=== PATIENT | female | born 1955 | race Caucasian/White ===

== ENCOUNTER 2018-02-28 19:31 | Inpatient (IN) | payer MEDICARE ==
[2018-02-28 20:06] LABS: Hematocrit 38 % (35-47); Hemoglobin 12.4 g/dl (12.0-16.0); Mean Corpuscular HGB Conc 32 g/dl (31-36); Mean Corpuscular Hemoglobin 28 pg (27-31); Mean Corpuscular Volume 88 fL (80-97); Mean Platelet Volume 7.7 fL (7.4-10.4); Platelet Count 387 10^3/ul (150-450); Red Blood Count 4.39 10^6/ul (4.00-5.40); Red Cell Distribution Width 17 % (10.5-15); White Blood Count 11.7 10^3/ul (3.5-10.8)
--- NOTE | 2018-02-28 20:20 | ED ---
Lower Extremity - HPI Summary HPI Summary: The pt is a 62 y/o female presenting to [facility] c/o [id number] bilateral lower extremity swelling worse on the RLE worsened 1 week ago. She notes leaky sores for the last 2 months but denies fever or SOB. She reports throbbing pain rated 2/10. Home Medications Medication Instructions Recorded Confirmed Type Albuterol 2.5MG/3ML (0.083%)* 1 inh PO QID PRN 06/08/15 06/09/15 History [Ventolin 2.5 MG/3 ML NEB.JOYCELYN*] Albuterol inh POWDER (NF) [Proair 2 puff PO Q4HR PRN 06/08/15 06/09/15 History Respiclick] Bupropion HCl [Bupropion HCl ER] 150 mg PO BID 06/08/15 06/09/15 History Citalopram TAB* [Celexa TAB*] 20 mg PO DAILY 06/08/15 06/09/15 History Diclofenac Sodium [Diclofenac 50 mg PO BID PRN 06/08/15 06/09/[address]] Fluticasone-Salmeterol 500-50* 1 dose PO BID 06/08/15 06/09/15 History [Advair Diskus 500-50*] Furosemide TAB* [Lasix TAB*] 40 mg PO DAILY 06/08/15 06/09/15 History Levothyroxine TAB* [Synthroid 137 137 mcg PO DAILY 06/08/15 06/09/15 History MCG TAB*] Metoprolol Succinate [Metoprolol 25 mg PO BID 06/08/15 06/09/15 History Succinate ER] Omeprazole CAP* [Prilosec CAP* 20 20 mg PO DAILY 06/08/15 06/09/15 History MG] Potassium Chloride Microencaps 10 meq PO DAILY 06/08/15 06/09/15 History [Klor-Con M10] Amlodipine Besylate [Norvasc] 2.5 mg PO DAILY 06/09/15 06/09/15 History Ibuprofen [Ibuprofen 200 MG] 2 tab PO Q6HR PRN 06/09/15 06/09/15 History - History of Current Complaint Chief Complaint: EDExtremityLower Stated Complaint: POSS INFECTION Time Seen by Provider: 02/28/18 19:44 Hx Obtained From: Patient Mechanism Of Injury: Unknown Onset of Pain: Days Onset/Duration: Worse Since - 1 week ago Severity Initially: Mild Severity Currently: Mild Pain Intensity: 2 Pain Scale Used: 0-10 Numeric Timing: Constant Location: Is Discrete @ - Bilateral LEs worse in the R Character Of Pain: Throbbing Associated Signs And Symptoms: Positive: Swelling, Other - Weeping sores Aggravating Factor(s): Nothing Alleviating Factor(s): Nothing - Allergies/Home Medications Allergies/Adverse Reactions: Allergies Allergy/AdvReac Type Severity Reaction Status Date / Time No Known Allergies Allergy Verified 06/08/15 16:32 PMH/Surg Hx/FS Hx/Imm Hx Previously Healthy: No Endocrine/Hematology History: Reports: Hx Thyroid Disease - Hypothyroidism Denies: Hx Diabetes Cardiovascular History: Reports: Hx Hypertension Denies: Hx Angina, Hx Coronary Artery Disease, Hx Hypercholesterolemia, Hx Myocardial Infarction, Hx Valvular Heart Disease Respiratory History: Reports: Hx Asthma Denies: Hx Chronic Obstructive Pulmonary Disease (COPD) History: Reports: Other Problems/Disorders - URIs Musculoskeletal History: Reports: Other Musculoskeletal History - Chronic L hip and L knee pain Sensory History: Denies: Hx Deafness Psychiatric History: Reports: Hx Anxiety, Hx Depression - Cancer History Cancer Type, Location and Year: None reported - Surgical History Surgery Procedure, Year, and Place: R shoulder decompression and [id number] rotator cuff repair- 2008. Cholecystectomy Infectious Disease History: No Infectious Disease History: Denies: Traveled Outside the [place] in Last 30 Days - Family History Known Family History: Positive: Cardiac Disease - Aneurysm- father , Diabetes - Sister , Respiratory Disease - COPD- mother , Other - CA-sister - Social History Occupation: Retired Lives: With Family Alcohol Use: None Substance Use Type: Reports: None Smoking Status (MU): Never Smoked Tobacco Review of Systems Negative: Fever Musculoskeletal: Other - Positive: Bilateral LE pain Positive: Edema - Bilateral LEs worse on the R Positive: Other - Positive: Weeping sores on LEs All Other Systems Reviewed And Are Negative: Yes Physical Exam - Summary Physical Exam Summary: Appearance: The patient is well-nourished in no acute distress and in no acute pain. Skin: Chronic venous stasis on the bilateral LEs. Open sores weeping serous fluid bilaterally worse on the RLE HEENT: The head is normocephalic and atraumatic. The pupils are equal and reactive. The conjunctivae are clear and without drainage. Nares are patent and without drainage. Mouth reveals moist mucous membranes and the throat is without erythema and exudate. The external ears are intact. The ear canals are patent and without drainage. The tympanic membranes are intact. Neck: The neck is supple with full range of motion and non-tender. There are no carotid bruits. There is no neck vein distension. Respiratory: Chest is non-tender. Lungs are clear to auscultation and breath sounds are symmetrical and equal. Cardiovascular: Heart is regular rate and rhythm. There is no murmur or rub auscultated. There is bilateral pitting edema of the LEs. Pulses are symmetrical and equal. Abdomen: The abdomen is soft and non-tender. There are normal bowel sounds heard in all four quadrants and there is no organomegaly palpated. Musculoskeletal:There is no back tenderness noted. Extremities are non-tender with full range of motion. There is good capillary refill. There is bilateral pitting edema of the LEs . No calf tenderness elicited. Neurological: Patient is alert and oriented to person, place and time. The patient has symmetrical motor strength in all four extremities. Cranial nerves are grossly intact. Deep tendon reflexes are symmetrical and equal in all four extremities. Psychiatric: The patient has an appropriate affect and does not exhibit any anxiety or depression. Triage Information Reviewed: Yes Vital Signs On Initial Exam: Initial Vitals Temp Pulse Resp BP Pulse Ox 97.0 F 82 16 120/86 97 02/28/18 19:48 02/28/18 19:48 02/28/18 19:48 02/28/18 19:48 02/28/18 19:48 Vital Signs Reviewed: Yes Diagnostics - Vital Signs Vital Signs Temp Pulse Resp BP Pulse Ox 02/28/18 19:48 97.0 F 82 16 120/86 97 - Laboratory Lab Results: Lab Results 02/28/18 Range/Units 19:59 WBC 11.7 H (3.5-10.8) 10^3/ul RBC 4.39 (4.00-5.40) 10^6/ul Hgb 12.4 (12.0-16.0) g/dl Hct 38 (35-47) % MCV 88 (80-97) fL MCH 28 (27-31) pg MCHC 32 (31-36) g/dl RDW 17 H (10.5-15) % Plt Count 387 (150-450) 10^3/ul MPV 7.7 (7.4-10.4) fL Neut % (Auto) Pending Lymph % (Auto) Pending [place] % (Auto) Pending Eos % (Auto) Pending Baso % (Auto) Pending Absolute Neuts (auto) Pending Absolute Lymphs (auto) Pending Absolute Monos (auto) Pending Absolute Eos (auto) Pending Absolute Basos (auto) Pending Absolute Nucleated RBC Pending Nucleated RBC % Pending Result Diagrams: 02/28/18 19:59 02/28/18 19:59 Lab Statement: Any lab studies that have been ordered have been reviewed, and results considered in the medical decision making process. Lower Extremity Course/Dx - Course Course Of Treatment: Ostensibly Ms. Ridley presented because of swelling to her bilateral lower extremities with redness and weeping. Her family is concerned that she is gotten weaker and is unable to take care of herself. She reportedly has been sliding out of her chair and onto the floor. She is a difficult historian. She is morbidly obese and has peripheral edema with chronic venous stasis changes and open weeping areas. It's unclear whether she has an acute cellulitis however she is given vancomycin here in the emergency department while her workup was in progress. She was noted to have a mild leukocytosis as well as a new renal insufficiency. The hospitals were contacted our admitting her. - Diagnoses Provider Diagnoses: Weakness, Falling, Acute renal failure - Physician Notifications Discussed Care Of Patient With: Liudmila Carolina - Hospitalist Instructed by Provider To: Admit As Inpatient - Critical Care Time Critical Care Time: 30-74 min Discharge - Sign-Out/Discharge Documenting (check all that apply): Patient Departure - Discharge Plan Condition: Stable Disposition: ADMITTED TO [facility] Referrals: Silva Bellamy DO [Primary Care Provider] - - Billing Disposition and Condition Condition: STABLE Disposition: Admitted to [facility] - Attestation Statements Document Initiated by Scribe: Yes Documenting Scribe: Leila Salazar Provider For Whom Scribe is Documenting (Include Credential): Dr. Vinod Jacob MD Scribe Attestation: Leila Moura , scribed for Dr. Vinod Jacob MD on 02/28/18 at 2120. Scribe Documentation Reviewed: Yes Provider Attestation: The documentation as recorded by the scribe, Leila Salazar accurately reflects the service I personally performed and the decisions made by me, Dr. Vinod Jacob MD Status of Scribe Document: Viewed
[2018-02-28 20:23] LABS: EGFR Non-African American 22.7 (>60)
[2018-02-28 20:42] LABS: ABS Basophils 0.1 10^3/ul (0-0.2); ABS Eosinophils 0.2 10^3/ul (0-0.6); ABS Lymphocytes 1.4 10^3/ul (1.0-4.8); ABS Monocytes 1.1 10^3/ul (0-0.8); ABS Neutrophils 8.9 10^3/ul (1.5-7.7); ABS Nucleated RBC 0 10^3/ul; Eosinophil % 1.6 %; Lymphocyte % 11.9 %; Nucleated Red Blood Cells % 0.1
[2018-02-28] MEDS ORDERED: Vancomycin(*) 1,000 MG in NS 0.9% 250 ML* 250 ML IVPB ONE (20:49)
[2018-02-28] MEDS ORDERED: NS 0.9% 1000 ML* 1,000 ML IV SCH (21:30)
[2018-02-28] MEDS ORDERED: ceFAZolin 1 GM ADVAN(*) 1 GM in NS 0.9% 50 ML* 50 ML IVPB SCH (22:00)
--- NOTE | 2018-03-01 01:02 | HP ---
CC: Dr. Bellamy * HISTORY AND PHYSICAL: DATE OF ADMISSION: 02/28/18 PRIMARY CARE PROVIDER: Dr. Bellamy. CHIEF COMPLAINT: Falls, swollen legs, and inability to care for self. HISTORY OF PRESENT ILLNESS: Ms. Ridley is a 62-year-old female who has a history of hypertension, depression/anxiety, morbid obesity, asthma, hypothyroidism, and questionable endometrial hyperplasia with atypia on biopsy in 2017, who presents to the emergency room with complaints of recurrent falls, swollen legs that have opened and are now weeping and an inability to care for herself. The patient has come to the emergency room. Her sister who is an RN finally was able to convince her to present to the emergency room to be evaluated. The patient really is not able to provide very much history. She is somewhat dysarthric and has slight word- finding difficulties but generally is just a poor historian. The patient's sister and [id number] provide the bulk of the history. The patient has been falling over the last several weeks. She tells me that she is just sliding when she is trying to stand up. Her sister has had to get her up several times. She does have a bruise on her bottom from recent fall. Additionally, she has had marked increase in lower extremity swelling over the last few months. Her legs have gotten to the point where they are now red and raw in the posterior aspects of the legs. They are quite sore to touch. The legs have been oozing. The patient denies any fevers or chills. She does admit to feeling pins and needles in her legs. Her sister has been trying to provide wraps on her legs; however, the patient dislikes the feeling of those and therefore has been taking them off. In addition to these complaints, the patient's sister states that she has been more confused recently. The patient also reportedly has not been taking her medications except when she feels like it. She spends most of her day sitting up in a recliner chair with her legs down. She ambulates very little. She does continue to get dyspneic with minimal exertion. PAST MEDICAL HISTORY: 1. Hypertension. 2. Depression/anxiety. 3. Morbid obesity. 4. Asthma. 5. Hypothyroidism. 6. Endometrial hyperplasia with atypia. PAST SURGICAL HISTORY: 1. Cholecystectomy. 2. Rotator cuff repair on the right. MEDICATIONS: 1. Megace 160 mg p.o. b.i.d. 2. Lasix 80 mg p.o. daily. 3. Amlodipine 5 mg p.o. daily. 4. Celexa 20 mg p.o. daily. 5. Omeprazole 20 mg p.o. daily. 6. Potassium chloride 10 mEq p.o. daily. 7. Metoprolol XL 25 mg p.o. b.i.d. 8. Synthroid 150 mcg p.o. daily. 9. Bupropion 150 mg p.o. b.i.d. ALLERGIES: No known drug allergies. FAMILY HISTORY: Mom at the age of 74 of COPD. Dad of a brain aneurysm rupture. He also had leukemia and diabetes. SOCIAL HISTORY: The patient is a nonsmoker. She does not drink alcohol. She worked as a hr receptionist. She is . She has 2 children. She indicates that her daughter, Ave, and her sister, Vidhi, would be her healthcare proxies. REVIEW OF SYSTEMS: The patient denies any fevers or chills. She states that her appetite at times has been quite poor and at other times is sufficient. She does not know if she has lost any weight. She is unable to get weighed at home. She states that her clothes are still fitting about the same. She denies any chest pain. She has a lower extremity edema as noted above. She denies any cough or sputum production. She admits to shortness of breath with exertion. No nausea, vomiting, abdominal pain, constipation, diarrhea or hematochezia. No hematuria, no dysuria. She has had dysarthria and mild word- finding difficulties as noted above over the last couple of days. The patient' s sister states that today is the worst. She denies any sudden vision loss. No dysphagia. No joint pains or muscle pains out of the ordinary, no rashes, no incapacitating anxiety or depression. PHYSICAL EXAMINATION GENERAL: The patient is a well-developed, morbidly obese, middle-aged female, lying in the stretcher, in no acute distress. VITAL SIGNS: Blood pressure 139/66, pulse 80, respirations 22, temp 97.0, O2 sat 99% on 3 L. HEENT: Pupils are equal and round. Extraocular muscles are intact. Oropharynx is clear. Oral mucosa is very dry. The patient's lips are very dry. There is no submandibular, cervical, or supraclavicular adenopathy. Thyroid is not enlarged. No thyroid nodules noted. PULMONARY: Lungs are clear in the upper lobe, but there are few crackles at the bases. CARDIAC: Normal S1, S2. Regular rate and rhythm. I do not appreciate any murmurs. There is marked anasarca and lymphedema-type changes to the bilateral lower extremities. ABDOMEN: Bowel sounds are present. Abdomen is soft, nontender, nondistended. MUSCULOSKELETAL: There is no cyanosis or clubbing of the digits. There is full range of motion of the upper extremities. The patient is not able to easily move her lower extremities due to pain and the fact that they are so heavy. NEURO: The patient is mildly dysarthric. A question of very minimal droop at the left corner of the mouth. STRENGTH: Strength in the upper extremities and lower extremities are symmetric bilaterally. PSYCH: The patient is alert. She is somewhat confused. Again, she is a very poor historian. She is alert to being in the hospital in her current situation however. SKIN: Warm and dry. The patient has a bruise on the right lateral chest wall and left lateral flank. I am unable to evaluate the bruise that the patient's sister states that it is on the patient's bottom. Her legs are erythematous. They are slightly warm. There are multiple areas of what appears to be raw skin with serous drainage. There is some yellow crusting and these areas are tender to touch. LABORATORY DATA: WBC 11.7, hemoglobin 12.4, hematocrit 38, platelets 387. Sodium 131, potassium 5.2, chloride 95, CO2 26, BUN 34, creatinine 2.19, glucose 104, calcium 9.4. Bilirubin 1.0, AST 42, ALT 21, alk phos 64. CRP is 68.18. Albumin 3.2. TSH pending. ASSESSMENT AND PLAN: Ms. Ridley is a 62-year-old female, who has brought to the emergency room at the advice of her sister for evaluation of recurrent falls and lower extremity swelling and weeping. 1. Bilateral lower extremity cellulitis. At this point, I do believe the patient likely has a very mild cellulitis of the bilateral lower extremities. She will be admitted and started on cefazolin 1 g IV q.12 hours. This is based on her renal function. Wound Care consult will be requested. For now, we will have nursing cover the areas of open skin with Xeroform and wrap with Kerlix. 2. Recurrent falls. It is unclear why the patient is so weak other than I suspect she has become markedly deconditioned by lack of activity. PT evaluation will need to be requested though I am going to hold off at this point while they are other acute medical issues to address. I do suspect the patient will need subacute rehab on discharge as at this point she is unable to independently take care of herself. 3. Lower extremity swelling. The patient has lymphedema-type changes to bilateral lower extremities. Her sister who is a reliable historian states that the swelling in the legs, however, developed most markedly over the last few months. It is unclear why this is. She has not been taking her Lasix, which is likely contributing. Additionally, she has not been taking her Synthroid routinely, which makes me question whether or not she is markedly hypothyroid at this time. TSH is pending. I am not going to provide any compression wraps at this time. We will wait for recommendations from the wound nurse due to the wounds on her legs. Transthoracic echocardiogram will be ordered. I am going to hold off on giving diuretics at this point as the patient has very dry oral mucosa and markedly elevated creatinine compared to her baseline, which makes me believe that she is likely intravascularly dry, but total body fluid overloaded. 4. Acute renal failure. The patient's baseline creatinine in 2017 was around 0.8. Currently, her creatinine is up to 2.19. This is not taking her Lasix 80 mg daily routinely. I will have the patient be started on normal saline at 100 mL per hour for 1 L. We will repeat creatinine tomorrow. If her creatinine fails to improve with IV fluid administration, she will need further investigation with likely FENa or imaging or even Nephrology consultation. 5. Hypertension. The patient's blood pressure is under fair control currently. I am going to continue her metoprolol succinate and amlodipine at her home doses. As she was not taking these routinely, we will need to make sure that her blood pressure does not bottom out on these doses. 6. Depression/anxiety. We will continue Celexa at her home dose. 7. Hypothyroidism. As above, I am concerned that the patient could be markedly hypothyroid at this point. For now, she will continue on her usual dose of 150 mcg of Synthroid daily. 8. Endometrial hyperplasia with atypia. This was diagnosed in 2017 via biopsy. It is unclear if she has followed up with [facility] regarding this. She has been started, however, on Megace. At this point, I am going to hold the Megace and she will need further evaluation for potential endometrial cancer either with transvaginal ultrasound or more likely endometrial biopsy. 9. DVT prophylaxis. According to the Adult Thrombosis Prophylaxis Risk Factor Assessment Guide, the patient has a total risk factor score of 4, making her high risk. She will be placed on heparin 5000 units subcutaneous q.8 hours. 10. Code status. Full. TIME SPENT: Seventy minutes was spent admitting this patient. [id number]/CPS #: [id number] ALLIE
[2018-03-01] MEDS: Heparin VIAL(*) 5000 UNITS/ML VIAL (FIVE THOUSAND) SUBCUT SCH ×3 (05:46→21:11)
[2018-03-01] MEDS: Levothyroxine TAB* 150 MCG TAB PO SCH (05:47)
[2018-03-01] MEDS ORDERED: ceFAZolin 1 GM in Dextrose (*) 1 GM/50 ML BAG IVPB SCH (06:00)
[2018-03-01] MEDS ORDERED: amLODIPine TAB* 5 MG PO SCH (09:00)
[2018-03-01] MEDS: BuPROPion XL* 150 MG TAB.XL PO SCH ×2 (10:22→21:11)
[2018-03-01] MEDS: Citalopram TAB* 20 MG PO SCH (10:22)
[2018-03-01] MEDS: Nystatin TOP POWDER* 15 GM BTL TOPICAL SCH ×3 (10:22→21:31)
[2018-03-01] MEDS: Metoprolol Succinate XL TAB* 25 MG PO SCH ×2 (10:22→21:11)
[2018-03-01] MEDS: Omeprazole CAP* 20 MG PO SCH (10:22)
[2018-03-01] MEDS ORDERED: Vancomycin per Pharmacy* NOTE FOLLOW UP SCH (11:00)
[2018-03-01 12:03] LABS: Hematocrit 34 % (35-47); Hemoglobin 10.9 g/dl (12.0-16.0); Mean Corpuscular HGB Conc 33 g/dl (31-36); Mean Corpuscular Hemoglobin 29 pg (27-31); Mean Corpuscular Volume 88 fL (80-97); Mean Platelet Volume 7.4 fL (7.4-10.4); Platelet Count 324 10^3/ul (150-450); Red Blood Count 3.84 10^6/ul (4.00-5.40); Red Cell Distribution Width 17 % (10.5-15); White Blood Count 9.4 10^3/ul (3.5-10.8)
[2018-03-01 12:25] LABS: EGFR Non-African American 37.2 (>60)
[2018-03-01] MEDS ORDERED: NS 0.9% 1000 ML* 1,000 ML IV SCH (14:30)
[2018-03-01] MEDS ORDERED: Vancomycin 1500 MG IV - x ONCE IVPB ONE ×2 (14:30)
[2018-03-01] MEDS: cefTRIAXone(*) 1 GM in NS 0.9% 50 ML* 50 ML IVPB SCH (15:35)
--- NOTE | 2018-03-01 15:40 | PN ---
Subjective Date of Service: 03/01/18 Interval History: Patient difficult to arouse today. Difficulty forming words but no other aphasia. Very dry mouth. Falls asleep during conversation. Not able to cooperate fully with questioning and exam but denies pain, CP, SOB, Abdominal pain, dysuria. Discussed with patient's family that this is not normal for her and that she has been getting slowly more confused for a period of time. Family History: Unchanged from Admission Social History: Unchanged from Admission Past Medical History: Unchanged from Admission Objective Active Medications: Acetaminophen (Tylenol Tab*) 650 mg PO Q4H PRN PRN Reason: PAIN Amlodipine Besylate (Norvasc Tab*) 5 mg PO DAILY [facility] Last Admin: 03/01/18 10:22 Dose: 5 mg Bupropion HCl (Wellbutrin Xl *) 150 mg PO BID [facility] Last Admin: 03/01/18 10:22 Dose: 150 mg Citalopram Hydrobromide (Celexa Tab*) 20 mg PO DAILY [facility] Last Admin: 03/01/18 10:22 Dose: 20 mg Heparin Sodium (Porcine) (Heparin Vial(*)) 5,000 units SUBCUT Q8HR [facility] Last Admin: 03/01/18 14:22 Dose: 5,000 units Sodium Chloride (Ns 0.9% 1000 Ml*) 1,000 mls @ 100 mls/hr IV PER RATE [facility] Doxycycline Hyclate 100 mg/ (Sodium Chloride) 250 mls @ 250 mls/hr IVPB Q12H [facility] Ceftriaxone Sodium 1 gm/ (Sodium Chloride) 50 mls @ 200 mls/hr IVPB Q24H [facility] Levothyroxine Sodium (Synthroid Tab*) 150 mcg PO 0600 [facility] Last Admin: 03/01/18 05:47 Dose: 150 mcg Metoprolol Succinate (Toprol Xl Tab*) 25 mg PO BID [facility] Last Admin: 03/01/18 10:22 Dose: 25 mg Nystatin (Nystatin Top Powder*) 1 applic TOPICAL TID [facility] Last Admin: 03/01/18 14:22 Dose: 1 applic Omeprazole (Prilosec Cap*) 20 mg PO DAILY [facility] Last Admin: 03/01/18 10:22 Dose: 20 mg Pharmacy Consult (Vancomycin Random Level*) 1 note FOLLOW UP 0600 PRN PRN Reason: PER PROTOCOL Stop: 03/02/18 12:00 Vital Signs - 8 hr 1202/18 08:00 Respiratory 20 Rate Oxygen Devices in Use Now: Nasal Cannula Appearance: Patient is a 62yo female who appears older than stated age and is sitting in the bed in NAD. Eyes: No Scleral Icterus, PERRLA Ears/Nose/Mouth/Throat: NL Teeth, Lips, Gums, Clear Oropharnyx, - - Mouth very dry. Neck: NL Appearance and Movements; NL JVP, Trachea Midline Respiratory: Symmetrical Chest Expansion and Respiratory Effort, Clear to Auscultation Cardiovascular: NL Sounds; No Murmurs; No JVD, RRR, - - 4+ edema with erythema and weeping in B/L LE. Abdominal: NL Sounds; No Tenderness; No Distention, No Hepatosplenomegaly Lymphatic: No Cervical Adenopathy Extremities: No Clubbing, Cyanosis Skin: No Nodules or Sclerosis Neurological: - - Confused, very lethargic, unable to cooperate with testing. Result Diagrams: 03/01/18 11:58 03/01/18 11:57 Additional Lab and Data: Lab Results Assess/Plan/Problems-Billing Assessment: Patient is a 62yo female with a PMH for asthma, Obesity hypoventilation on 2L O2 , hypothyroidism, hypotension, who presented to the hospital for increasing confusion and falls as well as LE edema and ulceration with possible cellulitis. - Patient Problems (1) Encephalopathy Current Visit: Yes Status: Acute Code(s): G93.40 - ENCEPHALOPATHY, UNSPECIFIED SNOMED Code(s): 13324444 Comment: - Is very lethargic but arousable - Is able to get up to commode with nursing staff but has not had full conversation with this author x2 - ABG normal, No gross metabolic disturbance - Possibly infection, UA, BC, pending - CXR shows possible small infiltrate, LE wounds erythematous - Got Vancomycin and Cefazolin, will treat for CAP with Ceftriaxone and Doxy which will also cover for strep/staph cellulitis. - Possible dysarthria, possibly due to dry mouth, will MRI brain. Negative brain CT and consider neuro consult. (2) Open leg wound Current Visit: Yes Status: Acute Code(s): S81.809A - UNSPECIFIED OPEN WOUND , UNSPECIFIED LOWER LEG, INIT ENCNTR SNOMED Code(s): 83775047 Comment: - B/L ulcerations on LE edema. - Continue antibiotics as above - Wound consult pending - Will get echo to assess for cor pulmonale from pulmonary hypertension or CHF - Has been progressively worsening (3) Edema Current Visit: Yes Status: Acute Code(s): R60.9 - EDEMA, UNSPECIFIED SNOMED Code(s): 069437711 Comment: - Worsening, hold lasix due to apparent intravascular hypovolemia - Wrap legs - T3 negative, continue synthroid, possibly myxedema contributing (4) HTN (hypertension) Current Visit: Yes Status: Acute Code(s): I10 - ESSENTIAL (PRIMARY) HYPERTENSION SNOMED Code(s): 67508639 Comment: - Normotensive, continue home medications besides lasix. (5) Chronic hypoxemic respiratory failure Current Visit: Yes Status: Acute Comment: - On 2L O2 chronically, now on 3L but not likely necessary - Recent PFTs show restriction likely due to obesity - Continue O2 (6) Full code status Current Visit: Yes Status: Acute Code(s): Z78.9 - OTHER SPECIFIED HEALTH STATUS SNOMED Code(s): 105826091 (7) DVT prophylaxis Current Visit: Yes Status: Acute Code(s): UWU4131 - SNOMED Code(s): 416061997 Comment: - Heparin SubQ Status and Disposition: Inpatient for full evaluation of AMS and LE edema.
[2018-03-01 16:27] LABS: Urine Appearance Cloudy; Urine Blood 1+ (Negative); Urine Color Yellow; Urine Ketones Trace (Negative); Urine Protein Negative (Negative); Urine Red Blood Cell Trace(0-2/hpf) (Absent); Urine Specific Gravity 1.012 (1.010-1.030); Urine Urobilinogen Negative (Negative); Urine White Blood Cell 3+(>20/hpf) (Absent)
[2018-03-01] MEDS: DOXYcycline IV* 100 MG in NS 0.9% 250 ML* 250 ML IVPB SCH (16:35)
[2018-03-01] MEDS: Acetaminophen TAB* 325 MG PO PRN (17:18)
[2018-03-02] MEDS: DOXYcycline IV* 100 MG in NS 0.9% 250 ML* 250 ML IVPB SCH ×2 (03:37→15:37)
[2018-03-02] MEDS: Heparin VIAL(*) 5000 UNITS/ML VIAL (FIVE THOUSAND) SUBCUT SCH ×3 (05:17→21:59)
[2018-03-02] MEDS: Levothyroxine TAB* 150 MCG TAB PO SCH (05:17)
[2018-03-02] MEDS ORDERED: Vancomycin Random Level* NOTE FOLLOW UP PRN (06:00)
[2018-03-02 07:37] LABS: Hematocrit 32 % (35-47); Hemoglobin 10.3 g/dl (12.0-16.0); Mean Corpuscular HGB Conc 33 g/dl (31-36); Mean Corpuscular Hemoglobin 29 pg (27-31); Mean Corpuscular Volume 89 fL (80-97); Mean Platelet Volume 7.9 fL (7.4-10.4); Platelet Count 310 10^3/ul (150-450); Red Blood Count 3.59 10^6/ul (4.00-5.40); Red Cell Distribution Width 17 % (10.5-15); White Blood Count 8.4 10^3/ul (3.5-10.8)
[2018-03-02 07:48] LABS: EGFR Non-African American 51.4 (>60)
[2018-03-02 08:20] LABS: ABS Basophils 0.1 10^3/ul (0-0.2); ABS Eosinophils 0.4 10^3/ul (0-0.6); ABS Lymphocytes 1.5 10^3/ul (1.0-4.8); ABS Neutrophils 5.3 10^3/ul (1.5-7.7); ABS Nucleated RBC 0 10^3/ul; Eosinophil % 5.2 %; Nucleated Red Blood Cells % 0.1
[2018-03-02] MEDS: Metoprolol Succinate XL TAB* 25 MG PO SCH ×3 (08:22→21:58)
[2018-03-02] MEDS: Omeprazole CAP* 20 MG PO SCH (08:22)
[2018-03-02] MEDS: Citalopram TAB* 20 MG PO SCH (08:22)
[2018-03-02] MEDS: BuPROPion XL* 150 MG TAB.XL PO SCH ×2 (08:22→21:59)
[2018-03-02] MEDS: Nystatin TOP POWDER* 15 GM BTL TOPICAL SCH ×3 (08:29→22:06)
[2018-03-02] MEDS: cefTRIAXone(*) 1 GM in NS 0.9% 50 ML* 50 ML IVPB SCH (15:02)
--- NOTE | 2018-03-02 15:54 | PN ---
Subjective Date of Service: 03/02/18 Interval History: Patient is much more alert today and gives a history of present illness consistent with H&P. Patient is very vague on the timeframes of the increased swelling in her legs. Patient denies F/C, N/V, abdominal pain, weakness, CP, SOB , N/V, dizziness, or other pain. Patient needs significant assist to get up to the commode. Family History: Unchanged from Admission Social History: Unchanged from Admission Past Medical History: Unchanged from Admission Objective Active Medications: Acetaminophen (Tylenol Tab*) 650 mg PO Q4H PRN PRN Reason: PAIN Last Admin: 03/01/18 17:18 Dose: 650 mg Bupropion HCl (Wellbutrin Xl *) 150 mg PO BID [facility] Last Admin: 03/02/18 08:22 Dose: 150 mg Citalopram Hydrobromide (Celexa Tab*) 20 mg PO DAILY [facility] Last Admin: 03/02/18 08:22 Dose: 20 mg Heparin Sodium (Porcine) (Heparin Vial(*)) 5,000 units SUBCUT Q8HR [facility] Last Admin: 03/02/18 15:02 Dose: 5,000 units Doxycycline Hyclate 100 mg/ (Sodium Chloride) 250 mls @ 250 mls/hr IVPB Q12H [facility] Last Admin: 03/02/18 15:37 Dose: 250 mls/hr Ceftriaxone Sodium 1 gm/ (Sodium Chloride) 50 mls @ 200 mls/hr IVPB Q24H [facility] Last Admin: 03/02/18 15:02 Dose: 200 mls/hr Levothyroxine Sodium (Synthroid Tab*) 150 mcg PO 0600 [facility] Last Admin: 03/02/18 05:17 Dose: 150 mcg Metoprolol Succinate (Toprol Xl Tab*) 12.5 mg PO BID [facility] Last Admin: 03/02/18 14:50 Dose: 12.5 mg Nystatin (Nystatin Top Powder*) 1 applic TOPICAL TID [facility] Last Admin: 03/02/18 15:02 Dose: 1 applic Omeprazole (Prilosec Cap*) 20 mg PO DAILY [facility] Last Admin: 03/02/18 08:22 Dose: 20 mg Vital Signs - 8 hr 03/02/18 03/02/18 08:00 11:17 Temperature 97.6 F Pulse Rate 71 Respiratory 16 16 Rate Blood Pressure 111/45 (mmHg) O2 Sat by Pulse 99 Oximetry Oxygen Devices in Use Now: Nasal Cannula Appearance: Patient is a 62yo female who appears stated age and is sitting in the bed in NAD. Eyes: No Scleral Icterus, PERRLA Ears/Nose/Mouth/Throat: NL Teeth, Lips, Gums, Clear Oropharnyx, - - Dry Mouth Neck: NL Appearance and Movements; NL JVP, Trachea Midline Respiratory: Symmetrical Chest Expansion and Respiratory Effort, Clear to Auscultation Cardiovascular: NL Sounds; No Murmurs; No JVD, RRR, - - 4+ B/L LE edema with ulcerations and tenderness. Abdominal: NL Sounds; No Tenderness; No Distention, No Hepatosplenomegaly Lymphatic: No Cervical Adenopathy Extremities: No Clubbing, Cyanosis Skin: No Nodules or Sclerosis, - - LE wounds over entirety of calves. Neurological: Alert and Oriented x 3, NL Sensation, NL Muscle Strength and Tone , - - CN II-XII intact. Result Diagrams: 03/02/18 07:22 03/02/18 07:22 Additional Lab and Data: Lab Results Microbiology and Other Data: Microbiology 03/01/18 11:57 Aerobic Blood Culture - Final Blood Venous Not Reportable Anaerobic Blood Culture - Final Not Reportable Blood Culture - Preliminary No Growth Day 1 03/01/18 15:45 Urine Culture - Final Urine No Growth (<1,000 CFU/mL) 03/01/18 15:55 Legionella Urinary Antigen - Final Urine Negative Legionella Antigen Streptococcus pneumoniae Ag Screen - Final Negative S. pneumo Antigen Assess/Plan/Problems-Billing Assessment: Patient is a 62yo female with a PMH for asthma, Obesity hypoventilation on 2L O2 , hypothyroidism, hypotension, who presented to the hospital for increasing confusion and falls as well as LE edema and ulceration with possible cellulitis. - Patient Problems (1) Encephalopathy Current Visit: Yes Status: Acute Code(s): G93.40 - ENCEPHALOPATHY, UNSPECIFIED SNOMED Code(s): 31331638 Comment: - Improved - Able to talk to this author today but is still somewhat confused. - ABG normal, No gross metabolic disturbance - Possibly infection, UA, BC, pending - CXR shows possible small infiltrate, LE wounds erythematous - Got Vancomycin and Cefazolin, will treat for CAP with Ceftriaxone and Doxy which will also cover for strep/staph cellulitis. - Possible dysarthria, possibly due to dry mouth, will MRI brain. Negative brain CT and consider neuro consult. (2) Open leg wound Current Visit: Yes Status: Acute Code(s): S81.809A - UNSPECIFIED OPEN WOUND , UNSPECIFIED LOWER LEG, INIT ENCNTR SNOMED Code(s): 33319203 Comment: - B/L ulcerations on LE edema. - Continue antibiotics as above - Wound consult recommended Silver Alginate, CARLOS and Reflux study which have been ordered. - Will get echo to assess for cor pulmonale from pulmonary hypertension or CHF - Has been progressively worsening - Will need wound care Follow up and possible lymphadema clinic referral. - Still hold Lasix due to concern for intravascular volume depletion - Elevate legs. (3) Edema Current Visit: Yes Status: Acute Code(s): R60.9 - EDEMA, UNSPECIFIED SNOMED Code(s): 263424040 Comment: - Worsening, hold lasix due to apparent intravascular hypovolemia - Wrap legs when able after CARLOS and Venous reflux study. - T3 normal, continue synthroid, possibly myxedema contributing (4) HTN (hypertension) Current Visit: Yes Status: Acute Code(s): I10 - ESSENTIAL (PRIMARY) HYPERTENSION SNOMED Code(s): 70451727 Comment: - Borderline Hypotensive, continue home medications besides lasix. (5) Chronic hypoxemic respiratory failure Current Visit: Yes Status: Acute Comment: - On 2L O2 chronically - Recent PFTs show restriction likely due to obesity - Continue O2 (6) Full code status Current Visit: Yes Status: Acute Code(s): Z78.9 - OTHER SPECIFIED HEALTH STATUS SNOMED Code(s): 034079875 (7) DVT prophylaxis Current Visit: Yes Status: Acute Code(s): GGU4880 - SNOMED Code(s): 219255156 Comment: - Heparin SubQ Status and Disposition: Inpatient for full evaluation of AMS and LE edema/wounds. Patient currently needs a Margarito lift for transfer and will need rehab at discharge.
[2018-03-02] MEDS ORDERED: LORazepam INJ* 2 MG/ML 1 ML VIAL IV PUSH PRN (17:00)
[2018-03-02] MEDS: Acetaminophen TAB* 325 MG PO PRN (21:58)
[2018-03-03] MEDS: DOXYcycline IV* 100 MG in NS 0.9% 250 ML* 250 ML IVPB SCH ×2 (03:11→16:11)
[2018-03-03] MEDS: Levothyroxine TAB* 150 MCG TAB PO SCH (05:18)
[2018-03-03] MEDS: Heparin VIAL(*) 5000 UNITS/ML VIAL (FIVE THOUSAND) SUBCUT SCH ×3 (05:18→21:28)
[2018-03-03 06:41] LABS: Hematocrit 33 % (35-47); Hemoglobin 10.6 g/dl (12.0-16.0); Mean Corpuscular HGB Conc 32 g/dl (31-36); Mean Corpuscular Hemoglobin 29 pg (27-31); Mean Corpuscular Volume 89 fL (80-97); Mean Platelet Volume 7.3 fL (7.4-10.4); Platelet Count 292 10^3/ul (150-450); Red Blood Count 3.67 10^6/ul (4.00-5.40); Red Cell Distribution Width 17 % (10.5-15); White Blood Count 6.9 10^3/ul (3.5-10.8)
[2018-03-03 06:56] LABS: EGFR Non-African American 58.9 (>60)
[2018-03-03 07:46] LABS: ABS Basophils 0.1 10^3/ul (0-0.2); ABS Eosinophils 0.5 10^3/ul (0-0.6); ABS Lymphocytes 1.7 10^3/ul (1.0-4.8); ABS Monocytes 0.9 10^3/ul (0-0.8); ABS Neutrophils 3.8 10^3/ul (1.5-7.7); ABS Nucleated RBC 0 10^3/ul; Eosinophil % 7.5 %; Nucleated Red Blood Cells % 0.1
--- NOTE | 2018-03-03 08:44 | PN ---
Subjective Date of Service: 03/03/18 Interval History: Patient seen and examined at bedside. Denies fever, chills, shortness of breath , chest discomfort, N/V/D. States that she is feeling much better than when she was admitted. Family History: Unchanged from Admission Social History: Unchanged from Admission Past Medical History: Unchanged from Admission Objective Active Medications: Acetaminophen (Tylenol Tab*) 650 mg PO Q4H PRN Reason: PAIN Bupropion HCl (Wellbutrin Xl *) 150 mg PO BID [facility] Citalopram Hydrobromide (Celexa Tab*) 20 mg PO DAILY [facility] Heparin Sodium (Porcine) (Heparin Vial(*)) 5,000 units SUBCUT Q8HR [facility] Doxycycline Hyclate 100 mg/ (Sodium Chloride) 250 mls @ 250 mls/hr IVPB Q12H [facility] Ceftriaxone Sodium 1 gm/ (Sodium Chloride) 50 mls @ 200 mls/hr IVPB Q24H [facility] Influenza Virus Vaccine (Fluarix *Quad* 2017-*) 0.5 ml IM .ONCE ONE Stop: 03/03/18 09:01 Levothyroxine Sodium (Synthroid Tab*) 150 mcg PO 0600 [facility] Lorazepam (Ativan Inj*) 0.5 mg IV PUSH ONCE PRN Reason: ANXIETY Stop: 03/03/18 16:59 Metoprolol Succinate (Toprol Xl Tab*) 12.5 mg PO BID [facility] Nystatin (Nystatin Top Powder*) 1 applic TOPICAL TID [facility] Omeprazole (Prilosec Cap*) 20 mg PO DAILY [facility] Vital Signs - 8 hr 03/03/18 03:56 Temperature 97.9 F Pulse Rate 75 Respiratory 18 Rate Blood Pressure 107/43 (mmHg) O2 Sat by Pulse 99 Oximetry Oxygen Devices in Use Now: Nasal Cannula - 3 L Appearance: NAD, sitting up in a chair Ears/Nose/Mouth/Throat: Mucous Membranes Moist Respiratory: Symmetrical Chest Expansion and Respiratory Effort, Clear to Auscultation - , diminished Cardiovascular: NL Sounds; No Murmurs; No JVD, RRR Abdominal: NL Sounds; No Tenderness; No Distention Extremities: - - Bilateral LE lymphedema Skin: - - Dressings to bilateral LEs with YUDY wraps and old drainage Neurological: Alert and Oriented x 3 Nutrition: Taking PO's Result Diagrams: 03/03/18 06:25 03/03/18 06:25 Additional Lab and Data: . Microbiology and Other Data: Microbiology 03/01/18 11:57 Aerobic Blood Culture - Final Blood Venous Not Reportable Anaerobic Blood Culture - Final Not Reportable Blood Culture - Preliminary No Growth Day 1 03/01/18 15:45 Urine Culture - Final Urine No Growth (<1,000 CFU/mL) 03/01/18 15:55 Legionella Urinary Antigen - Final Urine Negative Legionella Antigen Streptococcus pneumoniae Ag Screen - Final Negative S. pneumo Antigen Assess/Plan/Problems-Billing Assessment: Ms. Ridley is a 62yo female with a PMH significant for asthma, Obesity hypoventilation on 2L O2, hypothyroidism, and hypotension, who presented to the hospital for increasing confusion and falls as well as LE edema and ulceration with possible cellulitis. - Patient Problems (1) CAP (community acquired pneumonia) Code(s): J18.9 - PNEUMONIA, UNSPECIFIED ORGANISM SNOMED Code(s): 653068808 Comment: - Afebrile, leukocytosis has resolved - CXR shows possible small infiltrate - Blood cultures no growth day 2 - Urine antigens for legionella and S. Pneumo negative - Continue Ceftriaxone and Doxy (2) Encephalopathy Code(s): G93.40 - ENCEPHALOPATHY, UNSPECIFIED SNOMED Code(s): 93656354 Comment: - Resolved - Suspect metabolic encephalopathy in the setting of infection - ABG normal - Possibly infection - UC no growth, BC no growth day #1, leukocytosis on admission, afebrile - CXR shows possible small infiltrate, LE wounds erythematous: Treating for for CAP with Ceftriaxone and Doxy (will also cover for strep/staph cellulitis) - Possible dysarthria, possibly due to dry mouth (Negative brain CT) (3) Open leg wound Code(s): S81.809A - UNSPECIFIED OPEN WOUND, UNSPECIFIED LOWER LEG, INIT ENCNTR SNOMED Code(s): 01106551 Comment: - Has been progressively worsening - B/L ulcerations on LE edema - Echo pending to assess for cor pulmonale from pulmonary hypertension or CHF - Wound consult recommended Silver Alginate, CARLOS and Reflux study which will need to be done outpatient. - Will need wound care Follow up and possible lymphadema clinic referral at discharge - Continue to hold Lasix due to concern for intravascular volume depletion - Continue to elevate legs and antibiotics as above (4) ANA (acute kidney injury) Code(s): N17.9 - ACUTE KIDNEY FAILURE, UNSPECIFIED SNOMED Code(s): 17828062 Comment: - Present on admission - Resolving (5) Edema Code(s): R60.9 - EDEMA, UNSPECIFIED SNOMED Code(s): 889822818 Comment: - Stable, hold lasix due to apparent intravascular hypovolemia - Echo study pending - Wrap legs when able after CARLOS and Venous reflux study - T3 normal, continue synthroid, possibly myxedema contributing (6) Chronic hypoxemic respiratory failure Comment: - On 2L O2 chronically - Recent PFTs show restriction likely due to obesity - Continue supplmental O2 (7) HTN (hypertension) Code(s): I10 - ESSENTIAL (PRIMARY) HYPERTENSION SNOMED Code(s): 53094971 Comment: - Borderline Hypotensive, SBP 90-130's - Continue metolprolol with hold parameters (8) DVT prophylaxis Code(s): UCA8932 - SNOMED Code(s): 265082323 Comment: - Heparin SubQ (9) Full code status Code(s): Z78.9 - OTHER SPECIFIED HEALTH STATUS SNOMED Code(s): 704030889 Status and Disposition: Inpatient for full evaluation of AMS and LE edema/wounds. Patient currently needs a Margarito lift for transfer and will need rehab at discharge.
[2018-03-03] MEDS: Metoprolol Succinate XL TAB* 25 MG PO SCH ×2 (09:30→21:27)
[2018-03-03] MEDS: BuPROPion XL* 150 MG TAB.XL PO SCH ×2 (10:11→21:27)
[2018-03-03] MEDS: Citalopram TAB* 20 MG PO SCH (10:12)
[2018-03-03] MEDS: Nystatin TOP POWDER* 15 GM BTL TOPICAL SCH ×3 (10:12→21:28)
[2018-03-03] MEDS: Omeprazole CAP* 20 MG PO SCH (10:12)
[2018-03-03] MEDS: cefTRIAXone(*) 1 GM in NS 0.9% 50 ML* 50 ML IVPB SCH (15:20)
--- NOTE | 2018-03-03 17:09 | ECHO ---
Patient: TAMI TAYLOR [facility] Rec#: [id number] : 1955 Date: 03/03/2018 Age: 62y Height: 168 cm / 66.1 in Weight: 141 kg / 310.8 lbs Sex: F BSA: 2.42 Room#: [facility] Admit Date#: 02/28/2018 Type: Inpatient Referring: Liudmila Carolina DO Reading: Jonas Parmar MD Coding Manager: Kylee Parry RD Transthoracic Echocardiogram Indication: Congestive heart failure BP: 107/43 HR: 69 Rhythm: NSR Findings History: Morbid obesity, HTN, asthma, hypothyroidism. Technical Comments: The study quality is fair. Completed at 0900. Left Ventricle: The left ventricular chamber size is normal. There is no left ventricular hypertrophy. There is normal left ventricular systolic function. The estimated ejection fraction is 55-60%. There is septal flattening of the interventricular septum consistent with right ventricular volume or pressure overload. There is no consistent Doppler evidence of clinically significant diastolic dysfunction. Left Atrium: The left atrium is mild to moderately dilated. Right Ventricle: Moderator Band present. The right ventricle is mild to moderately dilated. The right ventricular global systolic function is low normal. Right Atrium: The right atrium is moderately dilated. Aortic Valve: The aortic valve is trileaflet. There is no evidence of aortic valve thickening. There is no evidence of aortic regurgitation. There is no evidence of aortic stenosis. Mitral Valve: The mitral valve leaflets are mildly thickened. There is trace to mild mitral regurgitation. There is no evidence of mitral stenosis. Tricuspid Valve: The tricuspid valve leaflets are normal. There is mild to moderate tricuspid regurgitation. The right ventricular systolic pressure is estimated at 41 mmHg. There is evidence of mild pulmonary hypertension. There is no tricuspid stenosis. Pulmonic Valve: The pulmonic valve structure is not well visualized. There is a trace pulmonic regurgitation. There is no pulmonic stenosis. Pericardium: There is no significant pericardial effusion. A pericardial fat pad is visualized. Aorta: There is mild dilatation of the ascending aorta. There is no dilatation of the aortic arch. The aortic root is normal in size. Pulmonary Artery: The main pulmonary artery is not well visualized. Venous: The inferior vena cava appears normal in size. There is a greater than 50% respiratory change in the inferior vena cava dimension. Summary: There was not any prior study for comparison. Conclusions There is normal left ventricular systolic function. The estimated ejection fraction is 55-60%. There is septal flattening of the interventricular septum consistent with right ventricular volume or pressure overload. There is no evidence of aortic stenosis. There is trace to mild mitral regurgitation. There is mild to moderate tricuspid regurgitation. The right ventricular systolic pressure is estimated at 41 mmHg. There is evidence of mild pulmonary hypertension. There is no significant pericardial effusion. Measurements Name Value Normal Range RVIDd (AP) 2D 3.4 cm (0.9 - 2.6) RVDdMajor (2D) 5 cm (2.2 - 4.4) RAd ISD 4CH 6.3 cm (3.4 - 4.9) RA (A4C)W 4.5 cm (2.9 - 4.6) IVSd (2D) 1 cm (0.6 - 1) LVPWd (2D) 0.9 cm (0.6 - 1) LVIDd (2D) 4.6 cm (3.6 - 5.4) LVIDs (2D) 3.4 cm - LV FS (2D) 26 % (25 - 45) Aortic Annulus 2.2 cm (1.4 - 2.6) Ao root diameter (2D) 3.1 cm (2.1 - 3.5) Ascending Ao 3.5 cm (2.1 - 3.4) Aortic arch 2.4 cm (1.8 - 3.4) LA dimension (AP) 2D 3.9 cm (2.3 - 3.8) LAd ISD 4CH 6 cm (2.9 - 5.3) LA ISD 4CH W 4.7 cm (2.5 - 4.5) Name Value Normal Range LA ESV BP (A/L) index 35 ml/m2 - Name Value Normal Range MV E-wave Vmax 1.3 m/sec - MV deceleration time 268 msec - MV A-wave Vmax 0.7 m/sec - MV E:A ratio 1.9 ratio - LV septal e' Vmax 0.09 m/sec - LV lateral e' Vmax 0.12 m/sec - LV E:e' septal ratio 14.4 ratio - LV E:e' lateral ratio 10.8 ratio - Name Value Normal Range AV Vmax 1.8 m/sec - AV VTI 37.3 cm - AV peak gradient 13 mmHg - AV mean gradient 6 mmHg - LVOT Vmax 1.1 m/sec - LVOT VTI 22.1 cm - LVOT peak gradient 5 mmHg - LVOT mean gradient 2 mmHg - JORDY Vmax 1.2 m/sec - Name Value Normal Range TR Vmax 3.1 m/sec - TR peak gradient 38 mmHg - RAP 3 mmHg - RVSP 41 mmHg - IVC diameter 1.7 cm - Name Value Normal Range PV Vmax 1.2 m/sec - PV peak gradient 6 mmHg -
[2018-03-03] MEDS: Acetaminophen TAB* 325 MG PO PRN (17:42)
[2018-03-04] MEDS: DOXYcycline IV* 100 MG in NS 0.9% 250 ML* 250 ML IVPB SCH ×2 (03:51→15:36)
[2018-03-04] MEDS: Heparin VIAL(*) 5000 UNITS/ML VIAL (FIVE THOUSAND) SUBCUT SCH ×2 (05:45→14:20)
[2018-03-04] MEDS: Levothyroxine TAB* 150 MCG TAB PO SCH (05:46)
[2018-03-04] MEDS ORDERED: Furosemide TAB* 40 MG PO SCH (09:00)
[2018-03-04] MEDS: Acetaminophen TAB* 325 MG PO PRN (10:32)
[2018-03-04] MEDS: Metoprolol Succinate XL TAB* 25 MG PO SCH (10:33)
[2018-03-04] MEDS: BuPROPion XL* 150 MG TAB.XL PO SCH (10:33)
[2018-03-04] MEDS: Citalopram TAB* 20 MG PO SCH (10:34)
[2018-03-04] MEDS: Omeprazole CAP* 20 MG PO SCH (10:34)
[2018-03-04] MEDS: Nystatin TOP POWDER* 15 GM BTL TOPICAL SCH ×2 (10:35→15:11)
[2018-03-04 12:11] VITALS: BP 98/54
[2018-03-04] MEDS: cefTRIAXone(*) 1 GM in NS 0.9% 50 ML* 50 ML IVPB SCH (14:20)
--- NOTE | 2018-03-04 14:20 | DS ---
CC: Silva Bellamy DO; [facility] * DISCHARGE SUMMARY: DATE OF ADMISSION: 02/28/18 DATE OF DISCHARGE: 03/04/18 PRIMARY CARE PROVIDER: Silva Bellamy DO ATTENDING PHYSICIAN: Kristen Momin MD * (dictated by Radha Shea NP). PRIMARY DIAGNOSES: 1. Community-acquired pneumonia. 2. Bilateral lower extremity lymphedema with chronic wounds. 3. Acute kidney injury. 4. Metabolic encephalopathy. SECONDARY DIAGNOSES: 1. Chronic hypoxic respiratory failure. 2. Hypertension. 3. Obesity hypoventilation syndrome. 4. Hypothyroidism. 5. Morbid obesity. STUDIES WHILE IN THE HOSPITAL: 1. Brain CT on 02/28/18 reads as minimal chronic ischemic white matter change and atrophy. Otherwise, negative noncontrast head CT. 2. Transthoracic echocardiogram on 03/03/18 reads as there is normal left ventricular systolic function. The estimated ejection fraction is 55 to 60%. There is septal flattening of the interventricular septum consistent with right ventricular volume or pressure overload. There is no evidence of aortic stenosis. There is trace to mild mitral regurgitation. There is mild to moderate tricuspid regurgitation. The right ventricular systolic pressure is estimated at 41 mmHg. There is evidence of mild pulmonary hypertension. There is no significant pericardial effusion. 3. Chest x-ray on 03/01/18 reads as small right basilar infiltrate. 4. Brain MRI on 03/02/18 reads as no acute finding. No evidence of restricted diffusion to suggest an acute infarct or hemorrhage. 5. Bilateral lower extremity venous Doppler study on 03/02/18 reads as no evidence of lower extremity DVT to the knee. Limited visualization of lower leg veins. Limited study secondary to bilateral skin edema, the patient's pain and limited mobility. HISTORY OF PRESENT ILLNESS AND HOSPITAL COURSE: Ms. Ridley is a 62-year-old female with past medical history for chronic hypoxic respiratory failure on 2 L oxygen, obesity hypoventilation syndrome, and hypothyroidism and hypertension, who presented through the emergency room on 02/28/18 with complaints of falls, lower extremity edema, and inability to care for herself at home. Please see the history and physical by Dr. Carolina for a complete summary of the events leading up to this hospitalization. In short, the patient has had recurrent falls and was ultimately convinced by her sister to come to the emergency room. She was noted to have some dysarthria and some difficulty finding words, though I will note that she is a very poor historian. She has had increasing lower extremity edema over the last few months and her legs had gotten to be red with multiple openings. Her sister had been attempting to wrap her legs, though the patient was not tolerating that. She was noted to be dyspneic with minimal exertion. The patient was admitted by the hospitalist service for suspected cellulitis and acute kidney injury. On admission, her creatinine was 2.19 and on 03/03/18 the creatinine is 0.96, which is at the patient's baseline. It was determined that the patient likely did not have cellulitis, and the redness and swelling are likely secondary to lymphedema. She was; however, noted to have an infiltrate on chest x-ray and therefore, was started on ceftriaxone and doxycycline which would cover Staphylococcus and Streptococcus for cellulitis. Other imaging as noted above. The patient had an echocardiogram which did show findings consistent with volume or pressure overload. She initially had been taken off her furosemide due to concerns for intravascular volume depletion, though she was restarted on furosemide on the day of discharge. She was seen by wound care, who recommended that her legs be dressed with silver alginate. Additionally, they recommended ABIs and reflex studies as an outpatient. The patient had general weakness while in the hospital and was only able to ambulate minimally with physical therapy on . It was decided by the patient and her family that she should go to subacute rehab before going back home. On the day of discharge, the patient reports feeling well. She does not quite feel at her baseline, but she reports feeling close to her baseline. She denies any shortness of breath or cough. She is not having any pain in her lower extremities, though she still has a moderate amount of lymphedema in bilateral extremities. She has multiple open areas with dry flaking skin covering her lower legs. Ms. Ridley is stable for discharge today. Vital signs are as follows: Temperature 97.9, heart rate 80, respiratory rate 19, oxygen saturation 100% on 2 L nasal cannula, blood pressure 98/54. DISCHARGE MEDICATIONS: New home medications: 1. Acetaminophen 650 mg p.o. q.6 hours p.r.n. fever and pain. 2. Amoxicillin 1000 mg p.o. t.i.d. x4 days. 3. Doxycycline 100 mg p.o. b.i.d. x4 days. 4. Nystatin powder 1 application topically t.i.d. Changed home medications: 1. Furosemide 40 mg p.o. daily (previously was 80 mg daily). Continued medications: 1. Bupropion 150 mg p.o. b.i.d. 2. Citalopram 20 mg p.o. daily. 3. Levothyroxine 150 mcg p.o. daily. 4. Metoprolol succinate 25 mg p.o. b.i.d. 5. Omeprazole 20 mg p.o. daily. 6. Amlodipine 5 mg p.o. daily. 7. Megestrol acetate 160 mg p.o. b.i.d. 8. Potassium chloride 10 mEq p.o. daily. DISCHARGE PLAN: Ms. Ridley will be discharged to rehab at [facility]. ACTIVITY: As tolerated. DIET: Heart-healthy. MEDICATIONS: Noted above. The patient should complete 4 days of amoxicillin and doxycycline to complete a total of 7 days of antibiotic therapy. I will note that this will cover her community-acquired pneumonia, as well as any Staphylococcus or Streptococcus cellulitis. Her Lasix dosing has been changed, though this may need to be readjusted at a later date. She can continue her other usual medications. Her bilateral lower extremities should be dressed as follows: Cleanse the legs with soap and water. Place silver alginate on wounds, cover with ABD pads and gauze wrap. The patient should return to the return to the emergency room for any worsening of symptoms, shortness of breath, lightheadedness, dizziness, chest discomfort, high fevers, chills, night sweats , loss of consciousness, or any other worrisome signs or symptoms. This is a summarized report of a complex medical history and hospital stay. For further details, please see the entire medical record. TIME SPENT: Approximately 40 minutes were spent on this discharge, greater than half of that time was spent [id number] with the patient discussing discharge plans and instructions. RADHA SHEA, BREAKER OPERATOR [id number]/[facility] #: [id number] ALLIE
== END 2018-03-04 15:40 | DRG 606 ==
LOC: ED 19:31 → MED 21:29
PROVIDERS: ADMIT Hospitalist; ATTEND Internal Medicine
DX: I89.0 Lymphedema, not elsewhere classified (principal); J18.9 Pneumonia, unspecified organism; G93.41 Metabolic encephalopathy; N17.9 Acute kidney failure, unspecified; E66.2 Morbid (severe) obesity with alveolar hypoventilation; Z68.43 Body mass index [BMI] 50.0-59.9, adult; L97.819 Non-pressure chronic ulcer of other part of right lower leg with unspecified severity; J96.11 Chronic respiratory failure with hypoxia; L97.829 Non-pressure chronic ulcer of other part of left lower leg with unspecified severity; Z99.81 Dependence on supplemental oxygen; I95.9 Hypotension, unspecified; J44.9 Chronic obstructive pulmonary disease, unspecified; E03.9 Hypothyroidism, unspecified; F41.8 Other specified anxiety disorders; I10 Essential (primary) hypertension; N85.02 Endometrial intraepithelial neoplasia [EIN]; Z91.81 History of falling; Z79.899 Other long term (current) drug therapy; Z82.5 Family history of asthma and other chronic lower respiratory diseases; Z83.3 Family history of diabetes mellitus; Z80.6 Family history of leukemia
CPT/HCPCS: 36415; 36600; 70450; 70551; 71045; 80048; 80053; 80202; 81003; 81015; 82803; 83036; 83735; 83880; 84145; 84436; 84439; 84443; 84479; 84481; 85025; 85027; 86140; 87040; 87086; 87899; 90686; 93306; 93970; 99283; A9270-GY; G8987-GO-CK; G8988-GO-CI; J0690; J0696; J1644; J2060; J3370

== ENCOUNTER 2020-09-18 22:42 | Inpatient (IN) ==
[2020-09-18] MEDS ORDERED: Vancomycin 1,500 MG in NS 0.9% 250 ml 250 ML IVPB ONE (23:24)
[2020-09-18] MEDS ORDERED: Piperacillin/Tazobac ADVAN 3.375 GM in NS 0.9% 100 ml BAG 100 ML IV ONE (23:24)
[2020-09-19 00:58] LABS: ABS Basophils 0.1 10^3/ul (0-0.2); ABS Eosinophils 0.4 10^3/ul (0-0.6); ABS Lymphocytes 1.8 10^3/ul (1.0-4.8); ABS Monocytes 0.7 10^3/ul (0-0.8); ABS Neutrophils 8.6 10^3/ul (1.5-7.7); Eosinophil % 3.5 %; Hematocrit 36 % (35-47); Hemoglobin 11.7 g/dL (12.0-16.0); Lymphocyte % 15.4 %; Mean Corpuscular HGB Conc 33 g/dL (31-36); Mean Corpuscular Hemoglobin 29 pg (27-31); Mean Corpuscular Volume 89 fL (80-97); Mean Platelet Volume 7.9 fL (7.4-10.4); Platelet Count 404 10^3/uL (150-450); Red Blood Count 4.02 10^6 /uL (3.70-4.87); Red Cell Distribution Width 18 % (10-15); White Blood Count 11.6 10^3/uL (3.5-10.8)
[2020-09-19 01:00] LABS: Activated Partial Thrombo Time 27.5 seconds (26.0-38.0); INR 1.12 (0.82-1.09)
[2020-09-19 01:02] LABS: ALT 4 U/L (7-52); AST 12 U/L (13-39); Albumin 3.2 g/dL (3.2-5.2); Albumin/Globulin Ratio 0.8 (1-3); Alkaline Phosphatase 73 U/L (35-149); Anion Gap 4 mmol/L (2-11); Blood Urea Nitrogen 13 mg/dL (6-24); C Reactive Protein 75.32 mg/L (<8.01); CO2 Carbon Dioxide 33 mmol/L (22-32); Chloride 100 mmol/L (101-111); EGFR African American 50.2 (>60); EGFR Non-African American 41.5 (>60); Globulin 4.1 g/dL (2-4); Glucose 119 mg/dL (70-100); Potassium 4.1 mmol/L (3.5-5.0); Sodium 137 mmol/L (135-145); Total Protein 7.3 g/dL (6.4-8.9)
[2020-09-19] MEDS ORDERED: Piperacillin/Tazobac 3.375 GM BAG ONE (01:06)
[2020-09-19] MEDS ORDERED: Lactated Ringers 1000 ml BAG 2,000 ML IV ONE (01:41)
[2020-09-19] MEDS ORDERED: fentaNYL 100 mcg/2 ml 50 MCG/ML VIAL IV SLOW PU ONE (01:41)
[2020-09-19 01:43] LABS: Troponin I 0.03 ng/mL (<0.03)
[2020-09-19 02:01] LABS: Erythrocyte Sed Rate 65 mm/Hr (0-29)
[2020-09-19] MEDS ORDERED: NS 0.9% 250 ml 250 ML ONE (02:09)
[2020-09-19] MEDS ORDERED: Vancomycin 1,000 MG BAG/ADDV ONE (02:28)
[2020-09-19 04:48] LABS: TSH Ultra Thyroid Stim Horm 6.99 mcIU/mL (0.34-5.60)
[2020-09-19 05:56] LABS: Urine Appearance Cloudy; Urine Bilirubin Negative (Negative); Urine Blood 2+ (Negative); Urine Color Yellow; Urine Glucose Negative (Negative); Urine Ketones Negative (Negative); Urine Nitrite Negative (Negative); Urine Protein Negative (Negative); Urine Specific Gravity 1.025 (1.002-1.030); Urine Urobilinogen Negative (Negative)
[2020-09-19 06:00] LABS: Urine Bacteria Absent (Absent); Urine Red Blood Cell 2+(6-10/hpf) (Absent); Urine Squamous Epithelial Cell Present (Absent); Urine White Blood Cell 2+(11-20/hpf) (Absent)
[2020-09-19 06:16] LABS: ABS Basophils 0.4 10^3/ul (0-0.2); ABS Eosinophils 0.4 10^3/ul (0-0.6); ABS Lymphocytes 2.1 10^3/ul (1.0-4.8); ABS Monocytes 0.8 10^3/ul (0-0.8); ABS Neutrophils 8.2 10^3/ul (1.5-7.7); Eosinophil % 3.4 %; Hematocrit 34 % (35-47); Hemoglobin 11.2 g/dL (12.0-16.0); Lymphocyte % 17.6 %; Mean Corpuscular HGB Conc 33 g/dL (31-36); Mean Corpuscular Hemoglobin 29 pg (27-31); Mean Corpuscular Volume 89 fL (80-97); Mean Platelet Volume 7.9 fL (7.4-10.4); Platelet Count 377 10^3/uL (150-450); Red Blood Count 3.84 10^6 /uL (3.70-4.87); Red Cell Distribution Width 17 % (10-15); White Blood Count 11.9 10^3/uL (3.5-10.8)
[2020-09-19 06:46] LABS: Anion Gap 4 mmol/L (2-11); Blood Urea Nitrogen 13 mg/dL (6-24); CO2 Carbon Dioxide 34 mmol/L (22-32); Calcium 8.7 mg/dL (8.6-10.3); Chloride 102 mmol/L (101-111); EGFR African American 52.5 (>60); EGFR Non-African American 43.4 (>60); Glucose 104 mg/dL (70-100); Potassium 3.9 mmol/L (3.5-5.0); Sodium 140 mmol/L (135-145)
[2020-09-19 06:49] LABS: Troponin I 0.04 ng/mL (<0.03)
[2020-09-19] MEDS ORDERED: Cefepime 1 GM in Dextrose 1 GM/50 ML BAG IV SCH (07:15)
[2020-09-19] MEDS: Mometasone/Formoter 100/5 MDI INH SCH ×2 (07:24→20:34)
[2020-09-19] MEDS: Lactated Ringers 1000 ml BAG 1,000 ML IV SCH (07:54)
[2020-09-19] MEDS: Enoxaparin 40 MG/0.4 ML SYR SUBCUT SCH (10:49)
[2020-09-19] MEDS: Cholecalciferol (VIT D3) 1,000 unit TAB PO SCH (10:49)
[2020-09-19] MEDS: Nystatin TOP POWDER 15 GM BTL TOPICAL SCH ×3 (10:51→20:26)
[2020-09-19] MEDS: ceFAZolin 1 GM ADVAN 1 GM in NS 0.9% 50 ML 50 ML IVPB SCH ×2 (10:58→20:16)
[2020-09-19 12:20] LABS: Troponin I 0.03 ng/mL (<0.03)
[2020-09-19] MEDS ORDERED: COVID-19 VACCINE, AD26(JANSSEN)/PF 0.5 ML IM ONE (14:00)
[2020-09-20] MEDS: ceFAZolin 1 GM ADVAN 1 GM in NS 0.9% 50 ML 50 ML IVPB SCH ×3 (05:07→20:32)
[2020-09-20] MEDS: Lactated Ringers 1000 ml BAG 1,000 ML IV SCH (07:26)
[2020-09-20 08:00] LABS: Hematocrit 32 % (35-47); Hemoglobin 10.5 g/dL (12.0-16.0); Mean Corpuscular HGB Conc 33 g/dL (31-36); Mean Corpuscular Hemoglobin 30 pg (27-31); Mean Corpuscular Volume 90 fL (80-97); Mean Platelet Volume 8.1 fL (7.4-10.4); Platelet Count 329 10^3/uL (150-450); Red Blood Count 3.55 10^6 /uL (3.70-4.87); Red Cell Distribution Width 18 % (10-15); White Blood Count 9.3 10^3/uL (3.5-10.8)
[2020-09-20 08:19] LABS: C Reactive Protein 98.96 mg/L (<8.01); Calcium 8.7 mg/dL (8.6-10.3); EGFR African American 58.5 (>60); EGFR Non-African American 48.3 (>60); Magnesium 2.2 mg/dL (1.9-2.7); Potassium 4.3 mmol/L (3.5-5.0)
[2020-09-20] MEDS: Enoxaparin 40 MG/0.4 ML SYR SUBCUT SCH (08:42)
[2020-09-20] MEDS: Nystatin TOP POWDER 15 GM BTL TOPICAL SCH ×2 (08:42→14:54)
[2020-09-20] MEDS: Cholecalciferol (VIT D3) 1,000 unit TAB PO SCH (08:43)
[2020-09-20] MEDS: Mometasone/Formoter 100/5 MDI INH SCH ×2 (08:55→20:08)
[2020-09-20] MEDS ORDERED: Pneumococcal Vac 23-Polyvalent IM ONE (09:00)
[2020-09-21] MEDS: Nystatin TOP POWDER 15 GM BTL TOPICAL SCH ×4 (00:25→19:57)
[2020-09-21] MEDS ORDERED: Lorazepam PYXIS KEY PRN (04:02)
[2020-09-21] MEDS ORDERED: LORazepam 2 mg VIAL 1 ml IM ONE (04:02)
[2020-09-21] MEDS ORDERED: LORazepam 2 mg VIAL 1 ml ONE (04:08)
[2020-09-21] MEDS: ceFAZolin 1 GM ADVAN 1 GM in NS 0.9% 50 ML 50 ML IVPB SCH ×3 (04:14→19:50)
[2020-09-21] MEDS: Mometasone/Formoter 100/5 MDI INH SCH ×2 (07:39→19:00)
[2020-09-21] MEDS: Cholecalciferol (VIT D3) 1,000 unit TAB PO SCH (09:48)
[2020-09-21] MEDS: Enoxaparin 40 MG/0.4 ML SYR SUBCUT SCH (09:49)
[2020-09-21 15:10] VITALS: BP 150/52
== END 2020-09-21 20:14 | disposition home health service (06) | DRG 872 ==
LOC: ED 22:42 → MEDTELE 09-19 02:17
PROVIDERS: ADMIT Student in an Organized Health Care Education/Training Program; ATTEND Internal Medicine

== ENCOUNTER 2020-10-04 13:03 | Inpatient (IN) ==
[2020-10-04] MEDS ORDERED: NS 0.9% 500 ml BAG 500 ML IV ONE (13:56)
[2020-10-04 14:21] LABS: ABS Basophils 0.1 10^3/ul (0-0.2); ABS Eosinophils 0.6 10^3/ul (0-0.6); ABS Lymphocytes 1.7 10^3/ul (1.0-4.8); ABS Monocytes 0.7 10^3/ul (0-0.8); ABS Neutrophils 7.2 10^3/ul (1.5-7.7); Hematocrit 34 % (35-47); Lymphocyte % 16.4 %; Mean Corpuscular HGB Conc 32 g/dL (31-36); Mean Corpuscular Hemoglobin 29 pg (27-31); Mean Corpuscular Volume 90 fL (80-97); Mean Platelet Volume 8.1 fL (7.4-10.4); Platelet Count 342 10^3/uL (150-450); Red Blood Count 3.77 10^6 /uL (3.70-4.87); Red Cell Distribution Width 18 % (10-15); White Blood Count 10.4 10^3/uL (3.5-10.8)
[2020-10-04 14:42] LABS: ALT 6 U/L (7-52); Albumin 3.2 g/dL (3.2-5.2); Albumin/Globulin Ratio 0.7 (1-3); Alkaline Phosphatase 67 U/L (35-149); Blood Urea Nitrogen 14 mg/dL (6-24); CO2 Carbon Dioxide 34 mmol/L (22-32); Chloride 100 mmol/L (101-111); EGFR African American 55.6 (>60); Globulin 4.5 g/dL (2-4); Glucose 97 mg/dL (70-100); Lipase 12 U/L (11.0-82.0); Magnesium 2.4 mg/dL (1.9-2.7); Sodium 138 mmol/L (135-145); Total Protein 7.7 g/dL (6.4-8.9)
[2020-10-04 14:47] LABS: Troponin I 0.03 ng/mL (<0.03)
[2020-10-04 15:27] LABS: Anion Gap 4 mmol/L (2-11)
[2020-10-04 15:54] LABS: Urine Appearance Clear; Urine Bilirubin Negative (Negative); Urine Blood 2+ (Negative); Urine Color Straw; Urine Glucose Negative (Negative); Urine Ketones Negative (Negative); Urine Nitrite Negative (Negative); Urine Protein Negative (Negative); Urine Specific Gravity 1.006 (1.002-1.030); Urine Urobilinogen Negative (Negative)
[2020-10-04 15:55] LABS: Urine Bacteria Absent (Absent); Urine Red Blood Cell 1+(3-5/hpf) (Absent); Urine White Blood Cell Absent (Absent)
[2020-10-04 16:56] LABS: Potassium Redraw 4.2 mmol/L (3.5-5.0)
[2020-10-04] MEDS ORDERED: Albuterol 2.5mg/3 ml (0.083%) NEB.SOLN INH ONE (17:37)
[2020-10-04] MEDS ORDERED: NS 0.9% IV SCH (18:00)
[2020-10-04 20:25] LABS: Troponin I 0.03 ng/mL (<0.03)
[2020-10-04] MEDS: Cefepime 2 GM in Dextrose 2 GM/50 ML BAG IV SCH (22:26)
[2020-10-04] MEDS: Enoxaparin 40 MG/0.4 ML SYR SUBCUT SCH (22:26)
[2020-10-05 07:09] LABS: ABS Basophils 0.1 10^3/ul (0-0.2); ABS Eosinophils 0.5 10^3/ul (0-0.6); ABS Lymphocytes 1.6 10^3/ul (1.0-4.8); ABS Monocytes 0.5 10^3/ul (0-0.8); ABS Neutrophils 5.9 10^3/ul (1.5-7.7); Eosinophil % 5.7 %; Hematocrit 32 % (35-47); Hemoglobin 10.6 g/dL (12.0-16.0); Lymphocyte % 18.5 %; Mean Corpuscular HGB Conc 33 g/dL (31-36); Mean Corpuscular Hemoglobin 30 pg (27-31); Mean Corpuscular Volume 90 fL (80-97); Mean Platelet Volume 8.4 fL (7.4-10.4); Nucleated Red Blood Cells % 0.1; Platelet Count 308 10^3/uL (150-450); Red Blood Count 3.54 10^6 /uL (3.70-4.87); Red Cell Distribution Width 18 % (10-15); White Blood Count 8.6 10^3/uL (3.5-10.8)
[2020-10-05 07:33] LABS: Calcium 8.6 mg/dL (8.6-10.3); EGFR African American 56.2 (>60); EGFR Non-African American 46.4 (>60); Potassium 3.9 mmol/L (3.5-5.0)
[2020-10-05] MEDS: Cefepime 2 GM in Dextrose 2 GM/50 ML BAG IV SCH ×2 (08:38→20:25)
[2020-10-05] MEDS: Potassium Chlor 10 meq TAB PO SCH (08:42)
[2020-10-05] MEDS: Mometasone/Formoter 100/5 MDI INH SCH ×2 (09:35→20:11)
[2020-10-05 16:47] LABS: TSH Ultra Thyroid Stim Horm 5.5 mcIU/mL (0.34-5.60)
[2020-10-05] MEDS: Nystatin TOP POWDER 15 GM BTL TOPICAL SCH ×2 (18:23→20:27)
[2020-10-05] MEDS: Enoxaparin 40 MG/0.4 ML SYR SUBCUT SCH (20:27)
[2020-10-06] MEDS ORDERED: Lorazepam PYXIS KEY PRN ×3 (03:50→13:45)
[2020-10-06] MEDS ORDERED: LORazepam 2 mg VIAL 1 ml IV PUSH ONE ×3 (03:50→13:45)
[2020-10-06] MEDS ORDERED: Iodixanol (CONTRAST) 320 MG/ML 100 ML SDV IV ONE ×2 (07:27→18:07)
[2020-10-06] MEDS: Potassium Chlor 10 meq TAB PO SCH (07:59)
[2020-10-06] MEDS: Mometasone/Formoter 100/5 MDI INH SCH ×2 (09:39→20:09)
[2020-10-06] MEDS: Cefepime 2 GM in Dextrose 2 GM/50 ML BAG IV SCH ×2 (09:56→20:33)
[2020-10-06] MEDS: Nystatin TOP POWDER 15 GM BTL TOPICAL SCH ×3 (09:56→21:38)
[2020-10-06] MEDS: Enoxaparin 40 MG/0.4 ML SYR SUBCUT SCH (21:22)
[2020-10-06] MEDS: Albuterol 2.5mg/3 ml (0.083%) NEB.SOLN INH PRN (21:53)
[2020-10-07 06:26] LABS: ABS Basophils 0.1 10^3/ul (0-0.2); ABS Eosinophils 0.9 10^3/ul (0-0.6); ABS Lymphocytes 1.6 10^3/ul (1.0-4.8); ABS Monocytes 0.8 10^3/ul (0-0.8); ABS Neutrophils 5.7 10^3/ul (1.5-7.7); Hematocrit 32 % (35-47); Hemoglobin 10.5 g/dL (12.0-16.0); Lymphocyte % 17.9 %; Mean Corpuscular HGB Conc 33 g/dL (31-36); Mean Corpuscular Hemoglobin 30 pg (27-31); Mean Corpuscular Volume 91 fL (80-97); Mean Platelet Volume 8.1 fL (7.4-10.4); Platelet Count 289 10^3/uL (150-450); Red Blood Count 3.54 10^6 /uL (3.70-4.87); Red Cell Distribution Width 19 % (10-15); White Blood Count 9.1 10^3/uL (3.5-10.8)
[2020-10-07 06:47] LABS: EGFR African American 59.7 (>60); EGFR Non-African American 49.3 (>60); Potassium 4.4 mmol/L (3.5-5.0)
[2020-10-07] MEDS: Mometasone/Formoter 100/5 MDI INH SCH ×2 (07:06→19:26)
[2020-10-07] MEDS: Cefepime 2 GM in Dextrose 2 GM/50 ML BAG IV SCH ×2 (07:13→19:50)
[2020-10-07] MEDS: Nystatin TOP POWDER 15 GM BTL TOPICAL SCH ×2 (10:02→13:05)
[2020-10-07] MEDS: Potassium Chlor 10 meq TAB PO SCH (10:02)
[2020-10-07] MEDS: Calcium Carb (TUMS) 500 mg CHEW TAB PO PRN ×2 (13:05→19:40)
[2020-10-07] MEDS: Albuterol 2.5mg/3 ml (0.083%) NEB.SOLN INH PRN (19:26)
[2020-10-07 20:09] LABS: Troponin I 0.03 ng/mL (<0.03)
[2020-10-07] MEDS: Enoxaparin 40 MG/0.4 ML SYR SUBCUT SCH (22:14)
[2020-10-08] MEDS: Nystatin TOP POWDER 15 GM BTL TOPICAL SCH ×4 (05:21→20:57)
[2020-10-08] MEDS: Mometasone/Formoter 100/5 MDI INH SCH ×2 (07:18→19:19)
[2020-10-08] MEDS: Potassium Chlor 10 meq TAB PO SCH (08:26)
[2020-10-08] MEDS: Calcium Carb (TUMS) 500 mg CHEW TAB PO PRN (08:26)
[2020-10-08] MEDS: Cefepime 2 GM in Dextrose 2 GM/50 ML BAG IV SCH ×2 (08:35→19:59)
[2020-10-08] MEDS: Enoxaparin 40 MG/0.4 ML SYR SUBCUT SCH (20:54)
[2020-10-08] MEDS ORDERED: Lorazepam PYXIS KEY PRN (22:35)
[2020-10-08] MEDS ORDERED: LORazepam 2 mg VIAL 1 ml IV PUSH ONE (22:35)
[2020-10-09] MEDS ORDERED: Haloperidol 5 mg/ml SDV IV/IM 5 MG/ML AMP IV SLOW PU ONE (01:18)
[2020-10-09] MEDS: Mometasone/Formoter 100/5 MDI INH SCH ×2 (07:35→19:40)
[2020-10-09] MEDS: Cefepime 2 GM in Dextrose 2 GM/50 ML BAG IV SCH ×2 (08:25→20:02)
[2020-10-09] MEDS: Nystatin TOP POWDER 15 GM BTL TOPICAL SCH ×3 (08:29→20:25)
[2020-10-09] MEDS: Potassium Chlor 10 meq TAB PO SCH (08:29)
[2020-10-09] MEDS: Enoxaparin 40 MG/0.4 ML SYR SUBCUT SCH (20:10)
[2020-10-10] MEDS: Mometasone/Formoter 100/5 MDI INH SCH (07:12)
[2020-10-10] MEDS: Cefepime 2 GM in Dextrose 2 GM/50 ML BAG IV SCH (09:00)
[2020-10-10] MEDS: Nystatin TOP POWDER 15 GM BTL TOPICAL SCH (09:01)
[2020-10-10] MEDS: Potassium Chlor 10 meq TAB PO SCH (09:01)
[2020-10-10 11:14] VITALS: BP 99/39
== END 2020-10-10 14:30 | DRG 872 ==
LOC: MED 13:03 → ED 13:03 → MED 19:59
PROVIDERS: ADMIT Internal Medicine; ATTEND Pediatrics

== ENCOUNTER 2020-10-20 12:24 | Inpatient (IN) ==
[2020-10-20 13:16] LABS: Urine Appearance Cloudy; Urine Bilirubin Negative (Negative); Urine Blood 1+ (Negative); Urine Color Amber; Urine Glucose Negative (Negative); Urine Ketones Negative (Negative); Urine Nitrite Negative (Negative); Urine Protein 1+(30 mg/dL) (Negative); Urine Urobilinogen Negative (Negative)
[2020-10-20 13:19] LABS: Urine Bacteria Absent (Absent); Urine Red Blood Cell 3+(>10/hpf) (Absent); Urine Squamous Epithelial Cell Present (Absent); Urine White Blood Cell Trace(0-5/hpf) (Absent)
[2020-10-20 13:38] LABS: ABS Basophils 0.1 10^3/ul (0-0.2); ABS Eosinophils 0.5 10^3/ul (0-0.6); ABS Lymphocytes 1.4 10^3/ul (1.0-4.8); ABS Monocytes 1.1 10^3/ul (0-0.8); ABS Neutrophils 6.7 10^3/ul (1.5-7.7); Eosinophil % 4.7 %; Hematocrit 33 % (35-47); Hemoglobin 10.6 g/dL (12.0-16.0); Lymphocyte % 14.2 %; Mean Corpuscular HGB Conc 32 g/dL (31-36); Mean Corpuscular Hemoglobin 30 pg (27-31); Mean Corpuscular Volume 94 fL (80-97); Mean Platelet Volume 8.2 fL (7.4-10.4); Platelet Count 298 10^3/uL (150-450); Red Blood Count 3.53 10^6 /uL (3.70-4.87); Red Cell Distribution Width 19 % (10-15); White Blood Count 9.7 10^3/uL (3.5-10.8)
[2020-10-20 13:39] LABS: ALT 12 U/L (7-52); Albumin 3.3 g/dL (3.2-5.2); Albumin/Globulin Ratio 0.9 (1-3); Alkaline Phosphatase 67 U/L (35-149); Blood Urea Nitrogen 13 mg/dL (6-24); C Reactive Protein 80.09 mg/L (<8.01); CO2 Carbon Dioxide 28 mmol/L (22-32); Chloride 102 mmol/L (101-111); EGFR African American 65.1 (>60); EGFR Non-African American 53.8 (>60); Globulin 3.8 g/dL (2-4); Glucose 102 mg/dL (70-100); Sodium 135 mmol/L (135-145); Total Protein 7.1 g/dL (6.4-8.9)
[2020-10-20 13:56] LABS: Anion Gap 5 mmol/L (2-11)
[2020-10-20] MEDS ORDERED: Metoprolol Tartrate 5 mg VIAL 5 ml VIAL (1 mg/ml) IV ONE ×3 (14:37→16:38)
[2020-10-20 15:02] LABS: TSH Ultra Thyroid Stim Horm 10.38 mcIU/mL (0.34-5.60)
[2020-10-20 15:04] LABS: Free T4 1.21 ng/dL (0.61-1.12)
[2020-10-20] MEDS ORDERED: Lactated Ringers 1000 ml BAG 1,000 ML IV ONE (15:41)
[2020-10-20] MEDS ORDERED: Diltiazem IV push/loading dose 5 MG/ML 5 ML vial (25 mg) IV SLOW PU ONE ×2 (16:54→17:22)
[2020-10-20] MEDS ORDERED: Digoxin IV 0.5 MG/2 ML AMP (0.25 MG/ML) IV SLOW PU ONE (18:09)
[2020-10-20] MEDS ORDERED: Al Hydrox/Mg Hydrox/Simet LIQ 30 ML UDC PO PRN (20:05)
[2020-10-20] MEDS ORDERED: Albuterol/Ipratropium NEB.SOL (2.5/0.5 MG) 3 ML NEB.SOLN INH PRN (20:09)
[2020-10-21 00:20] LABS: Magnesium 2.1 mg/dL (1.9-2.7); Potassium 4.5 mmol/L (3.5-5.0)
[2020-10-21] MEDS: Mometasone/Formoter 200/5 MDI INH SCH ×3 (00:42→19:31)
[2020-10-21] MEDS: Nystatin TOP POWDER 15 GM BTL TOPICAL SCH ×4 (00:42→23:21)
[2020-10-21 06:22] LABS: ABS Eosinophils 0.8 10^3/ul (0-0.6); ABS Lymphocytes 1.9 10^3/ul (1.0-4.8); ABS Monocytes 1.1 10^3/ul (0-0.8); ABS Neutrophils 6.8 10^3/ul (1.5-7.7); Eosinophil % 7.2 %; Hematocrit 26 % (35-47); Hemoglobin 8.5 g/dL (12.0-16.0); Lymphocyte % 17.8 %; Mean Corpuscular HGB Conc 32 g/dL (31-36); Mean Corpuscular Hemoglobin 30 pg (27-31); Mean Corpuscular Volume 92 fL (80-97); Mean Platelet Volume 7.8 fL (7.4-10.4); Platelet Count 268 10^3/uL (150-450); Red Blood Count 2.84 10^6 /uL (3.70-4.87); Red Cell Distribution Width 19 % (10-15); White Blood Count 10.5 10^3/uL (3.5-10.8)
[2020-10-21 06:38] LABS: Anion Gap 4 mmol/L (2-11); Blood Urea Nitrogen 12 mg/dL (6-24); CO2 Carbon Dioxide 32 mmol/L (22-32); Calcium 8.4 mg/dL (8.6-10.3); Chloride 104 mmol/L (101-111); EGFR African American 75.1 (>60); Glucose 92 mg/dL (70-100); Potassium 4.5 mmol/L (3.5-5.0); Sodium 140 mmol/L (135-145)
[2020-10-21] MEDS ORDERED: Diltiazem (ADVAN VIAL) 100 MG/100 ML ADDV.BAG IV SCH (09:00)
[2020-10-21 10:23] LABS: % Iron Saturation 10 % (15-55); Iron 25 ug/dL (50-212); Total Iron Binding Capacity 239 mcg/dL (250-450); Transferrin 171 mg/dL (203-362); Unsaturated Iron Binding < 224 ug/dL
[2020-10-21] MEDS ORDERED: Haloperidol 5 mg/ml SDV IV/IM 5 MG/ML AMP IV SLOW PU ONE ×2 (13:19→15:13)
[2020-10-21 13:50] LABS: ABS Basophils 0.1 10^3/ul (0-0.2); ABS Eosinophils 0.7 10^3/ul (0-0.6); ABS Lymphocytes 1.7 10^3/ul (1.0-4.8); ABS Monocytes 1.1 10^3/ul (0-0.8); ABS Neutrophils 7.1 10^3/ul (1.5-7.7); Eosinophil % 6.8 %; Hematocrit 27 % (35-47); Hemoglobin 8.6 g/dL (12.0-16.0); Lymphocyte % 15.9 %; Mean Corpuscular HGB Conc 33 g/dL (31-36); Mean Corpuscular Hemoglobin 30 pg (27-31); Mean Corpuscular Volume 93 fL (80-97); Mean Platelet Volume 7.9 fL (7.4-10.4); Platelet Count 293 10^3/uL (150-450); Red Blood Count 2.85 10^6 /uL (3.70-4.87); Red Cell Distribution Width 19 % (10-15); White Blood Count 10.6 10^3/uL (3.5-10.8)
[2020-10-21] MEDS ORDERED: Amiodarone 360 MG IVPREMIX 360 MG/200 ML BAG IV ONE ×2 (16:33→17:00)
[2020-10-21] MEDS: Amiodarone 360 MG IVPREMIX 360 MG/200 ML BAG IV ONE ×3 (16:34→17:08)
[2020-10-21] MEDS ORDERED: Amiodarone 150 mg IVPREMIX 150 MG/100 ML BAG IV ONE ×2 (16:41→16:42)
[2020-10-21] MEDS ORDERED: Lorazepam PYXIS KEY PRN (17:04)
[2020-10-21 18:33] LABS: Total T3 53 ng/dL (87-178)
[2020-10-21] MEDS: Iron Sucrose 200 MG in NS 0.9% 100 ml BAG 100 ML IVPB SCH (19:03)
[2020-10-21] MEDS ORDERED: Amiodarone 360 MG IVPREMIX 360 MG/200 ML BAG IV SCH (23:00)
[2020-10-21] MEDS: LORazepam 2 mg VIAL 1 ml IV PUSH PRN (23:15)
[2020-10-21] MEDS: Haloperidol 5 mg/ml SDV IV/IM 5 MG/ML AMP IV SLOW PU PRN (23:15)
[2020-10-22 04:37] LABS: ABS Eosinophils 0.6 10^3/ul (0-0.6); ABS Lymphocytes 1.6 10^3/ul (1.0-4.8); ABS Neutrophils 5.9 10^3/ul (1.5-7.7); Eosinophil % 6.1 %; Hematocrit 24 % (35-47); Lymphocyte % 17.7 %; Mean Corpuscular HGB Conc 33 g/dL (31-36); Mean Corpuscular Hemoglobin 31 pg (27-31); Mean Corpuscular Volume 92 fL (80-97); Mean Platelet Volume 7.9 fL (7.4-10.4); Platelet Count 268 10^3/uL (150-450); Red Blood Count 2.63 10^6 /uL (3.70-4.87); Red Cell Distribution Width 19 % (10-15); White Blood Count 9.1 10^3/uL (3.5-10.8)
[2020-10-22 04:53] LABS: Calcium 7.9 mg/dL (8.6-10.3); EGFR African American 79.1 (>60); EGFR Non-African American 65.3 (>60)
[2020-10-22] MEDS: LORazepam 2 mg VIAL 1 ml IV PUSH PRN (04:58)
[2020-10-22] MEDS ORDERED: Lactated Ringers 1000 ml BAG 500 ML IV ONE (05:49)
[2020-10-22] MEDS: Mometasone/Formoter 200/5 MDI INH SCH ×3 (07:23→19:12)
[2020-10-22] MEDS: Iron Sucrose 200 MG in NS 0.9% 100 ml BAG 100 ML IVPB SCH (08:52)
[2020-10-22] MEDS: Nystatin TOP POWDER 15 GM BTL TOPICAL SCH ×3 (08:58→22:38)
[2020-10-22] MEDS: Haloperidol 5 mg/ml SDV IV/IM 5 MG/ML AMP IV SLOW PU PRN (13:51)
[2020-10-22] MEDS ORDERED: Polyethylene Glycol 3350 17 GM PACKET PO PRN (15:49)
[2020-10-22] MEDS ORDERED: Magnesium Hydroxide LIQ 30 ML UDC PO PRN (15:49)
[2020-10-22] MEDS ORDERED: Lorazepam PYXIS KEY PRN (15:55)
[2020-10-22] MEDS ORDERED: LORazepam 2 mg VIAL 1 ml IV PUSH ONE (15:55)
[2020-10-23 05:36] LABS: ABS Basophils 0.1 10^3/ul (0-0.2); ABS Eosinophils 0.7 10^3/ul (0-0.6); ABS Lymphocytes 1.5 10^3/ul (1.0-4.8); ABS Monocytes 0.9 10^3/ul (0-0.8); ABS Neutrophils 5.9 10^3/ul (1.5-7.7); Eosinophil % 8.1 %; Hematocrit 27 % (35-47); Hemoglobin 8.8 g/dL (12.0-16.0); Lymphocyte % 16.8 %; Mean Corpuscular HGB Conc 32 g/dL (31-36); Mean Corpuscular Hemoglobin 30 pg (27-31); Mean Corpuscular Volume 93 fL (80-97); Mean Platelet Volume 7.9 fL (7.4-10.4); Platelet Count 269 10^3/uL (150-450); Red Blood Count 2.92 10^6 /uL (3.70-4.87); Red Cell Distribution Width 19 % (10-15); White Blood Count 9.2 10^3/uL (3.5-10.8)
[2020-10-23 06:09] LABS: Calcium 8.2 mg/dL (8.6-10.3); Potassium 4.3 mmol/L (3.5-5.0)
[2020-10-23 06:14] LABS: EGFR African American 73.2 (>60); EGFR Non-African American 60.5 (>60)
[2020-10-23] MEDS: Mometasone/Formoter 200/5 MDI INH SCH ×2 (08:19→20:00)
[2020-10-23] MEDS: Nystatin TOP POWDER 15 GM BTL TOPICAL SCH ×3 (09:09→20:00)
[2020-10-23] MEDS: Iron Sucrose 200 MG in NS 0.9% 100 ml BAG 100 ML IVPB SCH (09:24)
[2020-10-23] MEDS: LORazepam 2 mg VIAL 1 ml IV PUSH PRN (14:04)
[2020-10-24] MEDS: Mometasone/Formoter 200/5 MDI INH SCH ×2 (07:47→19:54)
[2020-10-24] MEDS: Iron Sucrose 200 MG in NS 0.9% 100 ml BAG 100 ML IVPB SCH (08:13)
[2020-10-24] MEDS: Nystatin TOP POWDER 15 GM BTL TOPICAL SCH ×3 (08:18→19:47)
[2020-10-24] MEDS ORDERED: Digoxin IV 0.5 MG/2 ML AMP (0.25 MG/ML) IV SLOW PU ONE ×2 (10:52→11:03)
[2020-10-24] MEDS: Haloperidol 5 mg/ml SDV IV/IM 5 MG/ML AMP IV SLOW PU PRN (14:23)
[2020-10-24] MEDS: LORazepam 2 mg VIAL 1 ml IV PUSH PRN (17:44)
[2020-10-24] MEDS: Senna TAB 8.6 mg TAB PO PRN (19:45)
[2020-10-24 20:00] LABS: Free T3 1.4 pg/mL (2.5-3.9)
[2020-10-24 20:02] LABS: Thyroid Peroxidase Antibodies 0.92 IU/mL (<9)
[2020-10-25] MEDS: LORazepam 2 mg VIAL 1 ml IV PUSH PRN ×2 (04:35→12:42)
[2020-10-25] MEDS: Mometasone/Formoter 200/5 MDI INH SCH ×2 (07:53→19:08)
[2020-10-25] MEDS: Nystatin TOP POWDER 15 GM BTL TOPICAL SCH ×3 (08:13→20:57)
[2020-10-25] MEDS ORDERED: Digoxin IV 0.5 MG/2 ML AMP (0.25 MG/ML) IV SLOW PU ONE ×2 (08:27→16:39)
[2020-10-25] MEDS ORDERED: Buffered Lidocaine 1% SYRIN 1 ml INTRADERM ONE (09:15)
[2020-10-25] MEDS: Haloperidol 5 mg/ml SDV IV/IM 5 MG/ML AMP IV SLOW PU PRN (09:49)
[2020-10-25] MEDS: Iron Sucrose 200 MG in NS 0.9% 100 ml BAG 100 ML IVPB SCH (09:53)
[2020-10-25] MEDS: Senna TAB 8.6 mg TAB PO PRN (20:57)
[2020-10-26] MEDS: LORazepam 2 mg VIAL 1 ml IV PUSH PRN (03:33)
[2020-10-26] MEDS: Mometasone/Formoter 200/5 MDI INH SCH ×2 (09:28→20:37)
[2020-10-26] MEDS: Nystatin TOP POWDER 15 GM BTL TOPICAL SCH ×3 (09:49→21:50)
[2020-10-26 11:54] LABS: Calcium 8.7 mg/dL (8.6-10.3); EGFR Non-African American 62.8 (>60); Potassium 4.4 mmol/L (3.5-5.0)
[2020-10-26] MEDS: Haloperidol 5 mg/ml SDV IV/IM 5 MG/ML AMP IV SLOW PU PRN (21:48)
[2020-10-27] MEDS: Haloperidol 5 mg/ml SDV IV/IM 5 MG/ML AMP IV SLOW PU PRN ×2 (05:29→20:54)
[2020-10-27] MEDS: Mometasone/Formoter 200/5 MDI INH SCH ×2 (07:38→21:29)
[2020-10-27] MEDS: Nystatin TOP POWDER 15 GM BTL TOPICAL SCH ×3 (10:36→20:58)
[2020-10-28] MEDS: LORazepam 2 mg VIAL 1 ml IV PUSH PRN ×2 (01:48→14:56)
[2020-10-28] MEDS: Haloperidol 5 mg/ml SDV IV/IM 5 MG/ML AMP IV SLOW PU PRN (04:44)
[2020-10-28] MEDS: Senna TAB 8.6 mg TAB PO PRN (04:51)
[2020-10-28] MEDS: Nystatin TOP POWDER 15 GM BTL TOPICAL SCH ×3 (08:33→19:53)
[2020-10-28] MEDS: Mometasone/Formoter 200/5 MDI INH SCH ×2 (08:51→20:09)
[2020-10-29] MEDS: Mometasone/Formoter 200/5 MDI INH SCH ×2 (07:14→19:25)
[2020-10-29] MEDS: Nystatin TOP POWDER 15 GM BTL TOPICAL SCH ×3 (09:19→20:03)
[2020-10-29 09:39] LABS: ABS Eosinophils 0.6 10^3/ul (0-0.6); ABS Lymphocytes 1.3 10^3/ul (1.0-4.8); ABS Monocytes 0.8 10^3/ul (0-0.8); ABS Neutrophils 6.2 10^3/ul (1.5-7.7); Eosinophil % 7.1 %; Hematocrit 31 % (35-47); Hemoglobin 10.1 g/dL (12.0-16.0); Lymphocyte % 14.5 %; Mean Corpuscular HGB Conc 32 g/dL (31-36); Mean Corpuscular Hemoglobin 30 pg (27-31); Mean Corpuscular Volume 94 fL (80-97); Mean Platelet Volume 7.7 fL (7.4-10.4); Platelet Count 387 10^3/uL (150-450); Red Blood Count 3.33 10^6 /uL (3.70-4.87); Red Cell Distribution Width 20 % (10-15)
[2020-10-29 09:55] LABS: Albumin/Globulin Ratio 0.8 (1-3); Calcium 8.7 mg/dL (8.6-10.3); EGFR Non-African American 64.5 (>60); Globulin 3.7 g/dL (2-4); Magnesium 2.1 mg/dL (1.9-2.7); Potassium 4.1 mmol/L (3.5-5.0); Total Protein 6.7 g/dL (6.4-8.9)
[2020-10-29 10:09] LABS: Digoxin 1.6 ng/ml (0.8-2.0)
[2020-10-30] MEDS: LORazepam 2 mg VIAL 1 ml IV PUSH PRN (04:32)
[2020-10-30] MEDS: Nystatin TOP POWDER 15 GM BTL TOPICAL SCH (08:01)
[2020-10-30] MEDS: Mometasone/Formoter 200/5 MDI INH SCH (08:11)
[2020-10-30 12:05] VITALS: BP 112/68
== END 2020-10-30 13:50 | DRG 309 ==
LOC: MEDTELE 12:24 → ED 12:24 → MEDTELE 10-21 00:04 → ICU 10-21 16:28 → MED 10-22 17:54 → MEDTELE 10-24 08:47
PROVIDERS: ADMIT Student in an Organized Health Care Education/Training Program; ATTEND Internal Medicine

== ENCOUNTER 2020-11-13 10:59 | Inpatient (IN) ==
[2020-11-13] MEDS ORDERED: Lactated Ringers 500 ml BAG 500 ML IV ONE (11:19)
[2020-11-13 12:34] LABS: Urine Appearance Turbid; Urine Bilirubin Negative (Negative); Urine Blood 2+ (Negative); Urine Color Amber; Urine Glucose Negative (Negative); Urine Ketones 1+ (Negative); Urine Nitrite Positive (Negative); Urine Protein 2+(100 mg/dL) (Negative); Urine Specific Gravity 1.026 (1.002-1.030); Urine Urobilinogen Positive (Negative)
[2020-11-13 12:40] LABS: ABS Basophils 0.1 10^3/ul (0-0.2); ABS Eosinophils 0.4 10^3/ul (0-0.6); ABS Lymphocytes 1.1 10^3/ul (1.0-4.8); ABS Monocytes 0.8 10^3/ul (0-0.8); ABS Neutrophils 6.3 10^3/ul (1.5-7.7); Eosinophil % 4.3 %; Hematocrit 35 % (35-47); Hemoglobin 11.2 g/dL (12.0-16.0); Lymphocyte % 12.9 %; Mean Corpuscular HGB Conc 32 g/dL (31-36); Mean Corpuscular Hemoglobin 31 pg (27-31); Mean Corpuscular Volume 97 fL (80-97); Mean Platelet Volume 8.4 fL (7.4-10.4); Nucleated Red Blood Cells % 0.1; Platelet Count 343 10^3/uL (150-450); Red Blood Count 3.59 10^6 /uL (3.70-4.87); Red Cell Distribution Width 20 % (10-15); White Blood Count 8.7 10^3/uL (3.5-10.8)
[2020-11-13 12:41] LABS: Urine Bacteria 1+ (Absent); Urine Red Blood Cell 3+(>10/hpf) (Absent); Urine White Blood Cell 3+(>20/hpf) (Absent)
[2020-11-13 12:50] LABS: Activated Partial Thrombo Time 28.7 seconds (26.0-38.0); INR 1.53 (0.86-1.15)
[2020-11-13 12:58] LABS: ALT 58 U/L (7-52); AST 53 U/L (13-39); Albumin 3.2 g/dL (3.2-5.2); Albumin/Globulin Ratio 0.8 (1-3); Alkaline Phosphatase 63 U/L (35-149); Blood Urea Nitrogen 12 mg/dL (6-24); C Reactive Protein 48.26 mg/L (<8.01); Calcium 8.8 mg/dL (8.6-10.3); Chloride 96 mmol/L (101-111); Creatine Kinase 49 U/L (10-223); EGFR African American 106.9 (>60); EGFR Non-African American 88.3 (>60); Globulin 3.9 g/dL (2-4); Glucose 95 mg/dL (70-100); Potassium 4.5 mmol/L (3.5-5.0); Sodium 140 mmol/L (135-145); Total Protein 7.1 g/dL (6.4-8.9)
[2020-11-13 13:02] LABS: Digoxin 1.5 ng/ml (0.8-2.0)
[2020-11-13 13:09] LABS: Troponin I 0.05 ng/mL (<0.03)
[2020-11-13 13:10] LABS: Anion Gap 3 mmol/L (2-11); CO2 Carbon Dioxide 41 mmol/L (22-32)
[2020-11-13] MEDS ORDERED: Furosemide 40 mg/4 ml IV VIAL IV ONE (13:34)
[2020-11-13] MEDS ORDERED: Levofloxacin 750 MG IVPREMIX 750 MG/150 ML BAG IVPB ONE (13:42)
[2020-11-13 14:27] LABS: Venous Bicarbonate HCO3 35.5 mmol/L (24-28)
[2020-11-13] MEDS ORDERED: Albuterol/Ipratropium NEB.SOL (2.5/0.5 MG) 3 ML NEB.SOLN INH PRN (18:38)
[2020-11-13] MEDS: Mometasone/Formoter 200/5 MDI INH SCH (19:33)
[2020-11-13 20:33] LABS: Troponin I 0.04 ng/mL (<0.03)
[2020-11-13] MEDS: Nystatin TOP POWDER 15 GM BTL TOPICAL SCH (21:39)
[2020-11-13] MEDS: Senna TAB 8.6 mg TAB PO SCH (21:39)
[2020-11-14] MEDS ORDERED: Lorazepam PYXIS KEY PRN ×2 (01:30→23:13)
[2020-11-14] MEDS ORDERED: LORazepam 2 mg VIAL 1 ml IV PUSH ONE ×2 (01:31→23:13)
[2020-11-14] MEDS: Furosemide 40 mg/4 ml IV VIAL IV SLOW PU SCH ×2 (05:56→09:53)
[2020-11-14 08:42] LABS: ABS Eosinophils 0.2 10^3/ul (0-0.6); ABS Lymphocytes 0.9 10^3/ul (1.0-4.8); ABS Monocytes 0.9 10^3/ul (0-0.8); ABS Neutrophils 8.4 10^3/ul (1.5-7.7); Eosinophil % 1.5 %; Hematocrit 38 % (35-47); Lymphocyte % 8.6 %; Mean Corpuscular HGB Conc 32 g/dL (31-36); Mean Corpuscular Hemoglobin 31 pg (27-31); Mean Corpuscular Volume 96 fL (80-97); Mean Platelet Volume 8.2 fL (7.4-10.4); Platelet Count 358 10^3/uL (150-450); Red Blood Count 3.89 10^6 /uL (3.70-4.87); Red Cell Distribution Width 19 % (10-15); White Blood Count 10.5 10^3/uL (3.5-10.8)
[2020-11-14 09:05] LABS: Albumin 3.1 g/dL (3.2-5.2); Albumin/Globulin Ratio 0.8 (1-3); Calcium 8.9 mg/dL (8.6-10.3); EGFR African American 108.8 (>60); EGFR Non-African American 89.9 (>60); Globulin 3.9 g/dL (2-4); Magnesium 1.9 mg/dL (1.9-2.7); Phosphorus 2.4 mg/dL (2.5-5.0); Potassium 4.4 mmol/L (3.5-5.0); Total Bilirubin 0.9 mg/dL (0.2-1.0)
[2020-11-14] MEDS: Mometasone/Formoter 200/5 MDI INH SCH ×2 (09:09→19:08)
[2020-11-14] MEDS: Senna TAB 8.6 mg TAB PO SCH ×2 (09:49→22:01)
[2020-11-14] MEDS: Nystatin TOP POWDER 15 GM BTL TOPICAL SCH ×3 (09:53→22:05)
[2020-11-14] MEDS: Aztreonam 1 GM in NS 0.9% 50 ML 50 ML IV SCH ×2 (13:44→22:04)
[2020-11-14] MEDS ORDERED: Magnesium Sulfate IV 1GM/100ML 1 GM/100 ML BAG IV ONE (15:39)
[2020-11-14] MEDS ORDERED: Potassium Acid Phos 500 mg TAB PO ONE (16:00)
[2020-11-14 20:40] LABS: CO2 Carbon Dioxide 32 mmol/L (22-32); Calcium 8.1 mg/dL (8.6-10.3); Chloride 92 mmol/L (101-111); Sodium 140 mmol/L (135-145)
[2020-11-14 20:45] LABS: Blood Urea Nitrogen 11 mg/dL (6-24); EGFR African American 112.7 (>60); EGFR Non-African American 93.1 (>60); Glucose 94 mg/dL (70-100)
[2020-11-14 21:10] LABS: Anion Gap 16 mmol/L (2-11)
[2020-11-15] MEDS ORDERED: NS 0.9% 1000 ml BAG 1,000 ML IV ONE (04:36)
[2020-11-15] MEDS: Aztreonam 1 GM in NS 0.9% 50 ML 50 ML IV SCH ×3 (05:36→21:26)
[2020-11-15 06:01] LABS: ABS Basophils 0.1 10^3/ul (0-0.2); ABS Eosinophils 0.5 10^3/ul (0-0.6); ABS Lymphocytes 1.3 10^3/ul (1.0-4.8); ABS Monocytes 0.9 10^3/ul (0-0.8); ABS Neutrophils 6.1 10^3/ul (1.5-7.7); Eosinophil % 5.4 %; Hematocrit 38 % (35-47); Hemoglobin 12.1 g/dL (12.0-16.0); Mean Corpuscular HGB Conc 32 g/dL (31-36); Mean Corpuscular Hemoglobin 31 pg (27-31); Mean Corpuscular Volume 97 fL (80-97); Mean Platelet Volume 9.1 fL (7.4-10.4); Platelet Count 279 10^3/uL (150-450); Red Blood Count 3.91 10^6 /uL (3.70-4.87); Red Cell Distribution Width 20 % (10-15); White Blood Count 8.9 10^3/uL (3.5-10.8)
[2020-11-15 06:17] LABS: Albumin 3.1 g/dL (3.2-5.2); Calcium 8.7 mg/dL (8.6-10.3); Chloride 92 mmol/L (101-111); Sodium 142 mmol/L (135-145)
[2020-11-15 06:23] LABS: ALT 37 U/L (7-52); Albumin/Globulin Ratio 0.8 (1-3); Alkaline Phosphatase 61 U/L (35-149); Blood Urea Nitrogen 12 mg/dL (6-24); EGFR African American 131.5 (>60); EGFR Non-African American 108.6 (>60); Globulin 3.8 g/dL (2-4); Glucose 92 mg/dL (70-100); Phosphorus 2.6 mg/dL (2.5-5.0); Total Protein 6.9 g/dL (6.4-8.9)
[2020-11-15 06:48] LABS: Anion Gap 7 mmol/L (2-11); Troponin I 0.05 ng/mL (<0.03)
[2020-11-15 06:50] LABS: CO2 Carbon Dioxide 43 mmol/L (22-32)
[2020-11-15] MEDS: Mometasone/Formoter 200/5 MDI INH SCH ×2 (07:19→19:11)
[2020-11-15 07:51] LABS: Magnesium 2.1 mg/dL (1.9-2.7); Potassium Redraw 3.8 mmol/L (3.5-5.0)
[2020-11-15] MEDS: Nystatin TOP POWDER 15 GM BTL TOPICAL SCH ×3 (08:53→23:07)
[2020-11-15] MEDS: Senna TAB 8.6 mg TAB PO SCH ×2 (15:51→23:07)
[2020-11-16] MEDS: Aztreonam 1 GM in NS 0.9% 50 ML 50 ML IV SCH ×2 (06:32→22:50)
[2020-11-16] MEDS: Mometasone/Formoter 200/5 MDI INH SCH ×2 (08:00→19:11)
[2020-11-16 08:26] LABS: Calcium 8.9 mg/dL (8.6-10.3); EGFR African American 126.2 (>60); EGFR Non-African American 104.3 (>60); Potassium 3.4 mmol/L (3.5-5.0)
[2020-11-16] MEDS: Nystatin TOP POWDER 15 GM BTL TOPICAL SCH ×3 (10:33→23:00)
[2020-11-16] MEDS: Senna TAB 8.6 mg TAB PO SCH ×2 (10:33→23:01)
[2020-11-16] MEDS ORDERED: ZOSYN 3.375 GM x ONE DOSE over 30 miuntes IV (17:00)
[2020-11-16] MEDS ORDERED: Zosyn per Pharmacy NOTE FOLLOW UP SCH (17:00)
[2020-11-16] MEDS ORDERED: D5W 1/2 NS 1000 ml BAG 1,000 ML IV SCH (19:00)
[2020-11-16] MEDS: ZOSYN 3.375 GM Q8H per EXTENDED INFUSION IV SCH (22:57)
[2020-11-17] MEDS: ZOSYN 3.375 GM Q8H per EXTENDED INFUSION IV SCH ×3 (06:10→22:24)
[2020-11-17 07:15] LABS: ALT 18 U/L (7-52); AST 22 U/L (13-39); Albumin 2.8 g/dL (3.2-5.2); Albumin/Globulin Ratio 0.9 (1-3); Alkaline Phosphatase 50 U/L (35-149); Blood Urea Nitrogen 12 mg/dL (6-24); Calcium 8.5 mg/dL (8.6-10.3); Chloride 92 mmol/L (101-111); EGFR African American 106.9 (>60); EGFR Non-African American 88.3 (>60); Globulin 3.2 g/dL (2-4); Glucose 100 mg/dL (70-100); Potassium 3.8 mmol/L (3.5-5.0); Sodium 143 mmol/L (135-145)
[2020-11-17 08:32] LABS: CO2 Carbon Dioxide 47 mmol/L (22-32)
[2020-11-17] MEDS: Mometasone/Formoter 200/5 MDI INH SCH ×2 (09:16→20:37)
[2020-11-17] MEDS: Senna TAB 8.6 mg TAB PO SCH ×2 (10:34→21:07)
[2020-11-17] MEDS: Nystatin TOP POWDER 15 GM BTL TOPICAL SCH ×3 (10:34→21:07)
[2020-11-17 18:18] LABS: Calcium 8.5 mg/dL (8.6-10.3)
[2020-11-17 18:20] LABS: Potassium 4.2 mmol/L (3.5-5.0)
[2020-11-17 18:24] LABS: EGFR African American 88.4 (>60)
[2020-11-18] MEDS ORDERED: Haloperidol 5 mg/ml SDV IV/IM 5 MG/ML AMP IV SLOW PU ONE (03:44)
[2020-11-18] MEDS: ZOSYN 3.375 GM Q8H per EXTENDED INFUSION IV SCH ×3 (06:03→21:38)
[2020-11-18] MEDS: Senna TAB 8.6 mg TAB PO SCH ×4 (10:24→21:41)
[2020-11-18] MEDS: Nystatin TOP POWDER 15 GM BTL TOPICAL SCH ×3 (10:27→21:52)
[2020-11-18] MEDS: Mometasone/Formoter 200/5 MDI INH SCH ×2 (10:30→21:11)
[2020-11-18 10:31] LABS: ABS Basophils 0.1 10^3/ul (0-0.2); ABS Eosinophils 0.6 10^3/ul (0-0.6); ABS Lymphocytes 1.4 10^3/ul (1.0-4.8); ABS Monocytes 0.8 10^3/ul (0-0.8); ABS Neutrophils 4.8 10^3/ul (1.5-7.7); Eosinophil % 8.3 %; Hematocrit 35 % (35-47); Hemoglobin 11.2 g/dL (12.0-16.0); Mean Corpuscular HGB Conc 32 g/dL (31-36); Mean Corpuscular Hemoglobin 31 pg (27-31); Mean Corpuscular Volume 97 fL (80-97); Mean Platelet Volume 8.8 fL (7.4-10.4); Platelet Count 278 10^3/uL (150-450); Red Cell Distribution Width 21 % (10-15); White Blood Count 7.8 10^3/uL (3.5-10.8)
[2020-11-18 10:34] LABS: Calcium 8.6 mg/dL (8.6-10.3); EGFR African American 116.9 (>60); EGFR Non-African American 96.6 (>60); Potassium 3.3 mmol/L (3.5-5.0)
[2020-11-18] MEDS ORDERED: Potassium Chloride LIQUID 20 MEQ/15 ML LIQUID PO ONE (11:24)
[2020-11-18] MEDS ORDERED: Cyanocobalamin INJ 1,000 MCG/ML VIAL 1 ML VIAL IM ONE (18:00)
[2020-11-19] MEDS: ZOSYN 3.375 GM Q8H per EXTENDED INFUSION IV SCH ×3 (05:13→22:00)
[2020-11-19] MEDS: Mometasone/Formoter 200/5 MDI INH SCH ×2 (07:04→20:23)
[2020-11-19] MEDS: Senna TAB 8.6 mg TAB PO SCH ×2 (09:07→22:23)
[2020-11-19] MEDS: Nystatin TOP POWDER 15 GM BTL TOPICAL SCH ×3 (09:08→22:00)
[2020-11-20] MEDS: ZOSYN 3.375 GM Q8H per EXTENDED INFUSION IV SCH ×3 (06:25→21:40)
[2020-11-20 07:03] LABS: ABS Basophils 0.1 10^3/ul (0-0.2); ABS Eosinophils 0.5 10^3/ul (0-0.6); ABS Lymphocytes 1.5 10^3/ul (1.0-4.8); ABS Monocytes 0.7 10^3/ul (0-0.8); Eosinophil % 8.5 %; Hematocrit 34 % (35-47); Hemoglobin 10.7 g/dL (12.0-16.0); Lymphocyte % 25.5 %; Mean Corpuscular HGB Conc 32 g/dL (31-36); Mean Corpuscular Hemoglobin 31 pg (27-31); Mean Corpuscular Volume 97 fL (80-97); Mean Platelet Volume 8.9 fL (7.4-10.4); Platelet Count 266 10^3/uL (150-450); Red Blood Count 3.47 10^6 /uL (3.70-4.87); Red Cell Distribution Width 20 % (10-15); White Blood Count 5.7 10^3/uL (3.5-10.8)
[2020-11-20 07:19] LABS: Blood Urea Nitrogen 9 mg/dL (6-24); Calcium 8.8 mg/dL (8.6-10.3); Chloride 95 mmol/L (101-111); EGFR African American 134.2 (>60); EGFR Non-African American 110.9 (>60); Glucose 82 mg/dL (70-100); Potassium 3.8 mmol/L (3.5-5.0); Sodium 145 mmol/L (135-145)
[2020-11-20 07:38] LABS: CO2 Carbon Dioxide 46 mmol/L (22-32)
[2020-11-20] MEDS: Nystatin TOP POWDER 15 GM BTL TOPICAL SCH ×3 (09:33→21:52)
[2020-11-20] MEDS: Senna TAB 8.6 mg TAB PO SCH ×3 (10:09→21:51)
[2020-11-20] MEDS: Mometasone/Formoter 200/5 MDI INH SCH ×3 (10:17→19:32)
[2020-11-21] MEDS: ZOSYN 3.375 GM Q8H per EXTENDED INFUSION IV SCH ×2 (05:42→14:42)
[2020-11-21] MEDS: Mometasone/Formoter 200/5 MDI INH SCH ×2 (08:01→19:17)
[2020-11-21 08:13] LABS: ALT 10 U/L (7-52); Albumin 2.9 g/dL (3.2-5.2); Albumin/Globulin Ratio 0.9 (1-3); Alkaline Phosphatase 50 U/L (35-149); Blood Urea Nitrogen 9 mg/dL (6-24); Calcium 8.7 mg/dL (8.6-10.3); Chloride 95 mmol/L (101-111); EGFR African American 149.8 (>60); EGFR Non-African American 123.8 (>60); Globulin 3.4 g/dL (2-4); Glucose 78 mg/dL (70-100); Sodium 141 mmol/L (135-145); Total Protein 6.3 g/dL (6.4-8.9)
[2020-11-21 08:21] LABS: Anion Gap 5 mmol/L (2-11); CO2 Carbon Dioxide 41 mmol/L (22-32)
[2020-11-21] MEDS: Nystatin TOP POWDER 15 GM BTL TOPICAL SCH ×3 (11:21→20:58)
[2020-11-21] MEDS: Senna TAB 8.6 mg TAB PO SCH ×2 (11:21→20:31)
[2020-11-21] MEDS ORDERED: LORazepam 2 mg VIAL 1 ml IV PUSH ONE (12:34)
[2020-11-21] MEDS ORDERED: Lorazepam PYXIS KEY PRN (12:34)
[2020-11-22] MEDS ORDERED: LORazepam 2 mg VIAL 1 ml IM ONE (03:02)
[2020-11-22] MEDS ORDERED: Lorazepam PYXIS KEY PRN (03:02)
[2020-11-22] MEDS: Mometasone/Formoter 200/5 MDI INH SCH (07:08)
[2020-11-22] MEDS: Senna TAB 8.6 mg TAB PO SCH (09:48)
[2020-11-22] MEDS: Nystatin TOP POWDER 15 GM BTL TOPICAL SCH (09:51)
[2020-11-22 12:06] VITALS: BP 137/75
== END 2020-11-22 16:00 | DRG 291 ==
LOC: ED 10:59 → MED 16:24 → SUATTDRO 16:24 → MED 18:14 → SSU 11-16 20:44
PROVIDERS: ADMIT Internal Medicine; ATTEND Internal Medicine